=== PATIENT | male | born 1965 | race Caucasian/White ===

== ENCOUNTER 2017-04-26 04:52 | Inpatient (IN) | payer MEDICAID ==
[2017-04-26] VITALS (7 sets, daily range): BP systolic 123–136; BP diastolic 70–81
[~2017-04-26] VITALS: Ht 170.2 cm; Wt 88.0 kg
--- NOTE | 2017-04-26 04:55 | NUR ---
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 PT IS A CURRENT SMOKER 3 CIGARETTES/DAY. PT STATED THAT HE LAST USED HEROIN 10 DAYS AGO. PT WENT TO ROOM #7 AND WAS PLACED ON THE MONITOR. PT IS CALM AND COOPERATIVE. PT IS SPEAKING IN COMPLETE SENTENCES. ST ON THE MONITOR WITH HR OF 107. DR. AIKEN IS AT THE BEDSIDE AND SPEAKING TO THE PT.
--- NOTE | 2017-04-26 04:55 | NUR ---
PT APPEARS SLIGHTLY ANXIOUS AND ASKED THE NURSES TO STEP OUT OF THE ROOM SO THAT HE COULD SPEAK TO THE DR IN PRIVATE.
[2017-04-26] MEDS ORDERED: NITROGLYCERIN PACKET 1 GM PACKET TD ONE (05:00)
[2017-04-26] MEDS ORDERED: LORAZEPAM 1 MG TABLET ONE (05:18)
[2017-04-26] MEDS ORDERED: NITROGLYCERIN PACKET 1 GM PACKET ONE (05:18)
[2017-04-26] MEDS ORDERED: IV NS 0.9% 1,000 ML BAG IV ONE (05:30)
[2017-04-26] MEDS ORDERED: LORAZEPAM 1 MG TABLET PO ONE (05:30)
--- NOTE | 2017-04-26 05:30 | NUR ---
CXR DONE AT THE BEDSIDE.
[2017-04-26 05:32] LABS: CALCIUM, SERUM 8.3 mg/dL (8.5-10.1); CARBON DIOXIDE 28 mmol/L (21-32); CHLORIDE 102 mmol/L (98-107); CREATININE 0.9 mg/dL (0.6-1.3); GLUCOSE 100 mg/dL (74-106); POTASSIUM 3.6 mmol/L (3.5-5.1); SODIUM SERUM 139 mmol/L (136-145); UREA NITROGEN, BLOOD 15 mg/dL (7-18)
[2017-04-26 05:36] LABS: INR 0.94 (0.87-1.13)
[2017-04-26 05:41] LABS: TROPONIN I < 0.017 ng/mL (0.00-0.056)
--- NOTE | 2017-04-26 05:52 | NUR ---
CALLING REPORT TO TELE NURSE.
[2017-04-26 05:57] LABS: BASOPHILS # (AUTO) 0.1 /CMM (0.0-0.2); BASOPHILS % (AUTO) 0.3 % (0.0-2.0); EOSINOPHILS # (AUTO) 0.2 /CMM (0.0-0.7); EOSINOPHILS % (AUTO) 0.9 % (0.0-6.0); HEMATOCRIT 42 % (39-51); HEMOGLOBIN 13.5 g/dL (13.5-17.5); LYMPHOCYTES # (AUTO) 3.9 /CMM (0.8-4.8); LYMPHOCYTES % (AUTO) 21.1 % (20.0-44.0); MEAN CORPUSCULAR HEMOGLOBIN 27 PG (26.0-33.0); MEAN CORPUSCULAR HGB CONC 32 g/dl (31.0-36.0); MEAN CORPUSCULAR VOLUME 84 fL (80-96); MONOCYTES # (AUTO) 0.9 /CMM (0.1-1.30); MONOCYTES % (AUTO) 4.7 % (2.0-12.0); NEUTROPHILS # (AUTO) 13.6 /CMM (1.8-8.9); PLATELET COUNT (AUTO) 261 /CMM (150-450); RDW COEFFICIENT OF VARIATION 15.6 (11.5-15.0); RED BLOOD CELL COUNT(AUTO) 5.01 MIL/uL (4.5-6.0); WHITE BLOOD COUNT (AUTO) 18.6 K/uL (4.3-11.0)
[2017-04-26] MEDS ORDERED: ZOLOFT PO (06:02)
[2017-04-26] MEDS ORDERED: RESCUE INHALER (06:02)
[2017-04-26] MEDS ORDERED: LISI10TA5 PO (06:02)
[2017-04-26] MEDS ORDERED: ASPI-605 PO (06:02)
[2017-04-26] MEDS ORDERED: ALBU8.5H2 INH (06:02)
[2017-04-26] MEDS ORDERED: MORPHINE SULFATE INJ 2 MG/ML DISP.SYRIN IV PRN ×2 (06:30)
[2017-04-26] MEDS ORDERED: DOCUSATE SODIUM 100 MG CAPSULE PO PRN (06:30)
[2017-04-26] MEDS ORDERED: ONDANSETRON HCL/PF 4 MG/2 ML VIAL IVP PRN (06:30)
[2017-04-26] MEDS ORDERED: NITROGLYCERIN 0.4 MG/TAB BOTTLE SL PRN (06:30)
[2017-04-26] MEDS ORDERED: ACETAMINOPHEN 325 MG TABLET PO PRN (06:30)
[2017-04-26] MEDS ORDERED: ALBUTEROL FS 2.5 MG/3 ML VIAL.NEB NEB PRN (06:30)
--- NOTE | 2017-04-26 06:50 | NUR ---
MS/RN NOTES PT ARRIVED TO UNIT VIA GURNEY FROM ER IN STABLE CONDITION. A/OX4, ON ROOM AIR, DENIES SOB. BREATHING EVEN AND UNLABORED. NOTES PAIN TO BE 10/10 TO THE LEFT CHEST RADIATING TO THE LEFT JAW AND SHOULDER. ON TELE MONITOR, DISPLAYING SINUS RHYTHM WITH HR AT 73. IV TO LEFT WRIST RUNNING IV BOLUS OF NS. ORIENTED PT TO ROOM AND CALL LIGHT. BED IN LOW/LOCKED POSITION WITH CALL LIGHT IN REACH. SIDE RAILS UPX2. WILL MONITOR AND ENDORSE TO DAY SHIFT RN FOR PIPPA.
--- NOTE | 2017-04-26 07:15 | NUR ---
B2B SALES EXECUTIVE NOTES PATIENT IN BED ALERT AND ORIENTED, COMPLAINTS OF PAIN BUT TOLERABLE AT THIS TIME, PIV PATENT AND INTACT, IVF INFUSING AND TOLERATING WELL, INFORMED PATIENT URINE SAMPLE IS NEEDED, AND TO HOLD BREAKFAST DUE TO A CARDIOLOGY CONSULT WITH DR. GARCIA, ALL NEEDS ATTENDED, CALL LIGHT WITHIN REACH, WILL CONTINUE TO MONITOR.
[2017-04-26] MEDS: ASPIRIN EC 81 MG TABLET.DR PO SCH (08:43)
--- NOTE | 2017-04-26 08:55 | NUR ---
CONTROL VALVE TECHNICIAN NOTES SKIN ASSESSMENT COMPLETED, PATIENT GAVE PERMISSION TO TAKE PICTURES OF BILATERAL UPPER AND LOWER EXTREMITIES, BUT PATIENT REFUSED PHOTOS OF HIS HEALED SCARS ON HIS BUTTOCKS AND LOWER ABDOMINAL RASHES, PATIENT COMPLAINED OF PAIN ON SHOULDER, JAW, BACK, AND CHEST, PAIN MEDICATION ADMINISTERED, REFUSES TO TAKE BLOOD PRESSURE MEDICATIONS AT THIS TIME, HE WANTS TO REST TO SEE IF HIS BLOOD PRESSURE WILL GO DOWN, ALL NEEDS ATTENDED AND MET, CALL LIGHT WITHIN REACH, WILL CONTINUE TO MONITOR.
[2017-04-26] MEDS ORDERED: CARVEDILOL 12.5 MG TABLET PO SCH (09:00)
[2017-04-26] MEDS: LISINOPRIL (10MG) 10 MG TABLET PO SCH (09:00)
--- NOTE | 2017-04-26 10:00 | NUR ---
OVEN TENDER BAGELS NOTES PATIENT REQUESTED FOR REGULAR DIET, DR. GARCIA MADE AWARE AND SAID OK TO CHANGE DIET, BUT NO SMOKING PATIENT IS WHEEZING. PATIENT MADE AWARE AND APPRECIATIVE, BUT PATIENT WAS FOUND DOWNSTAIRS IN THE LOBBY, AFTER I INFORMED HIM HE NEEDS STAFF TO ACCOMPANY HIM TO SMOKE, PER PATIENT, "I FORGOT ABOUT WHAT YOU SAID". PATIENT ENCOURAGED TO STOP SMOKING. ALL NEEDS ATTENDED, WILL CONTINUE TO MONITOR.
[2017-04-26] MEDS: ATORVASTATIN 40 MG TABLET PO SCH (11:40)
[2017-04-26] MEDS: NICOTINE PATCH (14MG) 14 MG PATCH.TD24 TD SCH (11:41)
[2017-04-26] MEDS: PANTOPRAZOLE 40 MG TABLET.DR PO SCH (11:41)
--- NOTE | 2017-04-26 13:12 | NUR ---
REGIONAL MEDICAL DIRECTOR NOTES PATIENT REQUESTING FOR DILAUDID MEDICATION INSTEAD OF MORPHINE, PER PATIENT HE'S ITCHING WITH MORPHINE. DR. RICO MADE AWARE AND GAVE NEW ORDER FOR DILAUDID 1MG IVP Q4H PRN, ORDER NOTED AND CARRIED OUT. PATIENT AWARE.
[2017-04-26] MEDS: HYDROMORPHONE INJ 2 MG/ML DISP.SYRIN IV PRN ×3 (13:27→21:30)
[2017-04-26] MEDS: methylPREDNISolone SOD SUCC 40 MG/ML VIAL IV SCH ×2 (13:28→17:29)
[2017-04-26] MEDS ORDERED: HYDROMORPHONE 1 MG/1 ML DISP.SYRIN IV PRN (13:30)
[2017-04-26] MEDS: ALBUTEROL FS 2.5 MG/3 ML VIAL.NEB NEB SCH ×2 (13:30→23:13)
[2017-04-26] MEDS ORDERED: ALBUTEROL FS 2.5 MG/3 ML VIAL.NEB ONE (14:13)
--- NOTE | 2017-04-26 18:00 | NUR ---
OFFICER CAPTAIN NOTES STILL NEED UA SAMPLE, PATIENT MADE AWARE NUMEROUS TIMES, AND WOULD SAY, OK, SAMPLE CUP PROVIDED AT BEDSIDE.
--- NOTE | 2017-04-26 18:57 | NUR ---
SUBSTITUTE CROSSING GUARD NOTES PATIENT ALERT AND ORIENTED, SMOKER, ENCOURAGED TO CEASE SMOKING, EXPLAINED RISKS AND BENEFITS, RELAYED WBC LEVEL TO DR. RICO, WITH NO NEW ORDER AT THIS TIME, LEFT HAND X-RAY STILL PENDING, ALL NEEDS ATTENDED, CALL LIGHT WITHIN REACH, SAFETY MEASURES IN PLACED, WILL ENDORSE TO BOX BRANDER FOR PIPPA.
--- NOTE | 2017-04-26 19:30 | NUR ---
RN NOTES RECEIVED PATIENT IN BED AWAKE, AO X 3, ABLE TO MAKE NEEDS KNOWN. NO ACUTE DISTRESS NOTED. DENIES CHEST PAIN AT THIS TIME. TELE READING SR HR 89. IV SITE PATENT, INTACT; FLUSHED. SAFETY REMINDERS GIVEN. SMOKING CESSATION EDUCATION GIVEN. ON LOW BED WITH BILATERAL UPPER SIDE RAIL UP. CALL LIGHT WITHIN EASY REACH. WILL CONTINUE TO MONITOR.
[2017-04-26] MEDS: ENOXAPARIN SODIUM 40 MG/0.4 ML DISP.SYRIN SQ SCH (21:27)
[2017-04-26] MEDS: LORAZEPAM 1 MG TABLET PO PRN (22:12)
--- NOTE | 2017-04-26 22:12 | NUR ---
RN NOTES PATIENT C/O FEELING ANXOUS, RESTLESS. NONPHARMACOLOGICAL INTERVENTIONS INEFFECTIVE. ATIVAN GIVEN ORDERED. WILL CONTINUE TO MONITOR.
[2017-04-26] MEDS ORDERED: ZOLPIDEM TARTRATE 5 MG TABLET PO PRN (23:00)
[2017-04-27] VITALS (7 sets, daily range): BP systolic 101–126; BP diastolic 49–83
[2017-04-27] MEDS: HYDROMORPHONE INJ 2 MG/ML DISP.SYRIN IV PRN ×6 (01:39→21:34)
[2017-04-27] MEDS: LORAZEPAM 1 MG TABLET PO PRN ×2 (05:52→20:24)
--- NOTE | 2017-04-27 05:52 | NUR ---
RN NOTES PATIENT C/O FEELING ANXIOUS, RESTLESS. NONPHARMACOLOGICAL INTERVENTIONS INEFFECTIVE. ATIVAN GIVEN ORDERED. WILL CONTINUE TO MONITOR.
--- NOTE | 2017-04-27 06:17 | NUR ---
RN NOTES PATIENT AWAKE, RESPIRATIONS EVEN. DENIES ANY PAIN AT THIS TIME. DUE MED GIVEN WITH NO ASE NOTED. NEEDS ATTENDED. SAFETY PRECAUTIONS AND COMFORT MEASURES IN PLACE. PATIENT SMOKED CIGARETTES 4 TIMES DURING ACADEMIC AFFAIRS COORDINATOR DESPITE SMOKING CESSATION EDUCATION FROM STAFF. WILL GIVE REPORT TO DAY SHIFT FOR CONTINUITY OF CARE.
[2017-04-27] MEDS: ALBUTEROL FS 2.5 MG/3 ML VIAL.NEB NEB SCH ×3 (07:33→22:38)
--- NOTE | 2017-04-27 07:33 | NUR ---
MS/RN Patient received Patient recieved from accelerator technician. Per accelerator technician, patient tends to wonder from room to room and at times has been going outside with any staff or notifying nursing. Educated patient as to the importance of staying in his room. Staed that he understood and would try to do so. Also requesting to have pain medication increased and for frequency to be every 3 hours and not q4 as currently prescribed. Will discuses with MD, although Dr Velasquez has given orders for medication order not to be changed.
[2017-04-27] MEDS: methylPREDNISolone SOD SUCC 40 MG/ML VIAL IV SCH ×3 (07:46→17:00)
[2017-04-27] MEDS: LISINOPRIL (10MG) 10 MG TABLET PO SCH (07:47)
[2017-04-27] MEDS: PANTOPRAZOLE 40 MG TABLET.DR PO SCH (07:47)
[2017-04-27] MEDS: ASPIRIN EC 81 MG TABLET.DR PO SCH (07:47)
[2017-04-27] MEDS: ATORVASTATIN 40 MG TABLET PO SCH (07:47)
[2017-04-27] MEDS: NICOTINE PATCH (14MG) 14 MG PATCH.TD24 TD SCH (07:47)
--- NOTE | 2017-04-27 08:30 | NUR ---
MS/RN Medications Morning medications administered as ordered.
--- NOTE | 2017-04-27 08:59 | NUR ---
MS/RN New hepolck New heplock inserted on left upper arm 20g.
--- NOTE | 2017-04-27 09:30 | NUR ---
MS/RN S/B Dr Timmons Seen by Dr Timmons - orders noted and carried out.
--- NOTE | 2017-04-27 13:30 | NUR ---
MS/RN Pain medications Pain medication administered as ordered.
--- NOTE | 2017-04-27 16:00 | NUR ---
MS/RN Urine Order for urine drug screen entered in computer. Patient provided with speicemckayla reyes.
[2017-04-27 17:10] LABS: CALCIUM, SERUM 8.2 mg/dL (8.5-10.1); CREATININE 1.1 mg/dL (0.6-1.3); MAGNESIUM 2.1 mg/dL (1.8-2.4); PHOSPHORUS 2.8 mg/dL (2.5-4.9); POTASSIUM 5.4 mmol/L (3.5-5.1)
[2017-04-27 17:20] LABS: HEMATOCRIT 40 % (39-51); LYMPHOCYTES # (AUTO) 0.9 /CMM (0.8-4.8); MEAN CORPUSCULAR HEMOGLOBIN 27 PG (26.0-33.0); MEAN CORPUSCULAR HGB CONC 33 g/dl (31.0-36.0); MEAN CORPUSCULAR VOLUME 83 fL (80-96); MONOCYTES # (AUTO) 0.5 /CMM (0.1-1.30); MONOCYTES % (AUTO) 2.1 % (2.0-12.0); NEUTROPHILS # (AUTO) 21.1 /CMM (1.8-8.9); NEUTROPHILS % (AUTO) 93.9 % (43.0-81.0); PLATELET COUNT (AUTO) 311 /CMM (150-450); RDW COEFFICIENT OF VARIATION 15.4 (11.5-15.0); RED BLOOD CELL COUNT(AUTO) 4.76 MIL/uL (4.5-6.0); WHITE BLOOD COUNT (AUTO) 22.5 K/uL (4.3-11.0)
[2017-04-27 17:30] LABS: INR 0.89 (0.87-1.13); PROTHROMBIN TIME 9.4 SECS (9.5-12.7)
--- NOTE | 2017-04-27 18:11 | NUR ---
MS/RN End note No changes in plan of care, patient still demanding that pain medications be changed to every 3 hours stating that the MD said it would be changed. Explained to patient that Dr Timmons does not want any changes, remalissa unhappy. Upon administering last dose of dilaudid, requesting for medication to be "given fast, I like the high it gives me". Educated patient the right way to administered dilaudid, remians unhappy, stating that next time he would do it himself. Again education provided. Patient requesting for flushes to be left in his room so he would flush his line himself.
--- NOTE | 2017-04-27 19:30 | NUR ---
ms rn note received patient awake and alert. wandering in halls. Demanding pain medication. Instructed patient to go back to his room. Medication will be administered safely as ordered. no respiratory distress or sob noted. Will continue to monitor.
--- NOTE | 2017-04-27 21:30 | NUR ---
ms rn note patient wandering in and out of patients rooms. Not listening to instructions. Trying to leave the floor to go smoke without someone with him. Security notified. Spoke to patient. Informed patient that he can sign an AMA form. Patient refused. Went back to his room. Will continue to monitor.
[2017-04-27] MEDS: ENOXAPARIN SODIUM 40 MG/0.4 ML DISP.SYRIN SQ SCH (22:42)
--- NOTE | 2017-04-27 22:44 | NUR ---
ms rn note patient stable in room. Endorsed to JOHN English for ignacio.
--- NOTE | 2017-04-27 22:45 | NUR ---
RECEIVED PATIENT FROM JOHN LINDSAY. ALERT AND ORIENTED X3, AGITATED, COMPLAINING OF PAIN OF 8/10 TO SHOULDERS. PER PATIENT DILAUDID 2MG IVP DID NOT GO THROUGH, PATIENT CLAIMED THE PERIPHERAL LINE IS DISLODGED. ALSO RECEIVED ATIVAN PO FOR AGITATION.
--- NOTE | 2017-04-27 23:01 | NUR ---
STARTED NEW LINE TO LEFT WRIST USING #22 GAUGE. PROCEDURE TOLERATED WELL.
--- NOTE | 2017-04-27 23:09 | NUR ---
PLACED CALL TO DR. GARCIA IF DILAUDID CAN BE GIVEN AGAIN. PATIENT STILL AGITATED AND ANXIOUS, PACING IN AND OUT OF THE ROOM
--- NOTE | 2017-04-27 23:12 | NUR ---
DR. GARCIA CALLED BACK, NO ORDER TO GIVE EXTRA DILAUDID, NOTIFIED PATIENT, WILL GIVE DILAUDID 2 MG WHEN DUE.
[2017-04-28] MEDS: HYDROMORPHONE INJ 2 MG/ML DISP.SYRIN IV PRN ×3 (01:29→09:20)
[2017-04-28] MEDS: LORAZEPAM 1 MG TABLET PO PRN (03:48)
--- NOTE | 2017-04-28 05:42 | NUR ---
PATIENT GIVEN DILAUDID REQUESTED AND INSTRUCTED TO STAY IN ROOM, PATIENT WENT OUT OF ROOM, AGITATED, CALLED SECURITY. GIVEN OPTION TO SIGN AMA IF NOT ABLE TO FOLLOW REDIRECTION.
--- NOTE | 2017-04-28 05:51 | NUR ---
PATIENT STILL AGITATED, REFUSING TO GO BACK IN ROOM, RAMBLING ON, CONFRONTING EZRA MERCADO. THEN DENIES IT. PER PATIENT "HE'S GOING TO APOLOGIZE". BODY LANGUAGE SAYS OTHERWISE. SECURITY TRYING TO REDIRECT PATIENT, PATIENT NOT COMPLIANT
--- NOTE | 2017-04-28 05:58 | NUR ---
PLACED CALL TO MD MAILS SUPERVISOR FOR ADDITIONAL ORDERS SECONDARY TO AGITATION AND COMBATIVENESS, AWAITING CALL BACK
--- NOTE | 2017-04-28 06:22 | NUR ---
ESCORTED DOWNSTAIRS TO SMOKE WITH IT SALES EXECUTIVE AND 3 SECURITY
--- NOTE | 2017-04-28 06:42 | NUR ---
PATIENT IN AND OUT OF ROOM, AGITATED, DISRUPTIVE AND COMBATIVE AT TIMES, NO SOB, NO CHEST PAIN, REFUSED TO STOP SMOKING, CALLED SECURITY SEVERAL TIMES TO REDIRECT PATIENT. WANTS TO GO DOWN TO SMOKE AFTER DILAUDID ADMINISTRATION, REFUSING NURSES INSTRUCTIONS. PRESENTED AMA TO SIGN, REFUSED TO SIGN. ALL DUE MEDICATIONS GIVEN, CALL LIGHT WITHIN REACH.
--- NOTE | 2017-04-28 07:00 | NUR ---
PATIENT WENT DOWN BY HIMSELF WITH TOTAL DISREGARD TO POLICY. AT START OF SHIFT, PATIENT NOT IN THE ROOM, ENDORSED TO AM NURSE
[2017-04-28] MEDS: ALBUTEROL FS 2.5 MG/3 ML VIAL.NEB NEB SCH (07:17)
--- NOTE | 2017-04-28 07:25 | NUR ---
PATIENT IS BACK TO HIS ROOM
--- NOTE | 2017-04-28 07:30 | NUR ---
RN OPEN NOTES RECEIVED REPORT FROM CASH CLERK NURSE. PATIENT IS IN BED, ALERT AND ORIENTED TO NAME, PLACE AND TIME. NO SIGNS AND SYMPTOMS OF DISTRESS. PER PATIENT, PAIN LEVEL 9/10. PATIENT CAME BACK FROM SMOKING BREAK, I ADVISED PATIENT THAT I CAN'T GIVE HIM HIS NICOTINE PATCH SINCE HE IS STILL SMOKING. IV SITE IS INTACT AND PATENT. WILL CONTINUE TO MONITOR AND ASSESS PATIENT THROUGH OUT MY SHIFT.
[2017-04-28 08:00] VITALS: BP 117/76
[2017-04-28] MEDS: LISINOPRIL (10MG) 10 MG TABLET PO SCH (09:00)
[2017-04-28] MEDS: NICOTINE PATCH (14MG) 14 MG PATCH.TD24 TD SCH (09:00)
[2017-04-28] MEDS: PANTOPRAZOLE 40 MG TABLET.DR PO SCH (09:16)
[2017-04-28] MEDS: ASPIRIN EC 81 MG TABLET.DR PO SCH (09:16)
[2017-04-28] MEDS: ATORVASTATIN 40 MG TABLET PO SCH (09:17)
[2017-04-28] MEDS ORDERED: predniSONE 20 MG TABLET PO SCH (09:30)
--- NOTE | 2017-04-28 10:45 | NUR ---
PATIENT LEFT HIS ROOM AT 9:45AM, POSSIBLY TO SMOKE CIGARETTE HE REQUESTED HIS OSTEOPATHIC RESIDENT AND CIGARETTE FROM THE NURSING STATION. . PATIENT DIDN'T COME BACK TO THE UNIT. WENT DOWN AT 10:30AM TO LOOK FOR HIM BUT HE WAS NO WHERE TO BE FOUND. CALLED SECURITY AT 10:45AM AND THEY SAID: "PATIENT WAS ASKING FOR DIRECTION TO THE TRAIN STATION AND THEN LEFT". NURSING FINANCIAL SERVICES COUNSELOR, MONTSE, MADE AWARE. CHARGE NURSE MADE AWARE. AT 9:30AM, PATIENT REQUESTED TO REMOVE HIS IV SITE BECAUSE IT IRRITATE HIS VEIN. I REMOVED HIS IV SITE PER PATIENT REQUEST. HOWEVER; PATIENT HAD ID BAND AT TIME OF LEAVING. NO PERSONAL BELONGING LEFT BEHIND. PATIENT LEFT AGAINST MEDICAL ADVISED.
== END 2017-04-28 09:45 | disposition left against medical advice (07) | DRG 140 ==
LOC: ER 04:53 → TELE 05:57 → MED 04-27 12:28
PROVIDERS: ADMIT Internal Medicine; ATTEND Internal Medicine
DX: J44.1 Chronic obstructive pulmonary disease with (acute) exacerbation (principal); J96.20 Acute and chronic respiratory failure, unspecified whether with hypoxia or hypercapnia; I25.10 Atherosclerotic heart disease of native coronary artery without angina pectoris; F17.210 Nicotine dependence, cigarettes, uncomplicated; F32.9 Major depressive disorder, single episode, unspecified; G89.29 Other chronic pain; I10 Essential (primary) hypertension; I25.2 Old myocardial infarction; Z79.899 Other long term (current) drug therapy; F43.10 Post-traumatic stress disorder, unspecified; F41.9 Anxiety disorder, unspecified; E78.5 Hyperlipidemia, unspecified; F19.10 Other psychoactive substance abuse, uncomplicated; R07.9 Chest pain, unspecified; Z95.1 Presence of aortocoronary bypass graft
CPT/HCPCS: 36415; 71010-TC; 73130-TC; 80048-TC; 80061-TC; 82150-TC; 83690-TC; 83735-TC; 84100-TC; 84484-TC; 85025-TC; 85610-TC; 85730-TC; 87040-TC; 87081-TC; 93307-TC; A4606; J1170; J1650; J2270; J2920; J7030; Z7610

== ENCOUNTER 2018-03-24 00:47 | Inpatient (IN) | payer MEDICAID, OTHER ==
[~2018-03-24] VITALS: Ht 172.7 cm; Wt 86.2 kg
[~2018-03-24 00:47] MED LIST: ALBU8.5H8 INH; ASPI-605 PO; LISI10TA5 PO; RESCUE INHALER; ZOLOFT PO
--- NOTE | 2018-03-24 01:36 | NUR ---
PT BIBSELF C/O KAYODE LE CELLULITIS T X1 WEEK; "LAST USED HEROIN TODAY" PT AOX3 RR EVEN AND UNLABORED. NO SOB NOTED. NAD NOTED. NO NVD AT THIS TIME. PT GOWNED AND PLACED ON MONITOR WAITING FOR MD RUIZ.
--- NOTE | 2018-03-24 01:45 | NUR ---
DR. RUTHERFORD AT BEDSIDE FOR EVAL.
[2018-03-24] MEDS ORDERED: VANCOMYCIN 1 GM in IV D5W 250 ML IV ONE (02:00)
--- NOTE | 2018-03-24 02:27 | NUR ---
LAB AT BEDSIDE FOR BLOOD DRAW.
[2018-03-24 02:44] LABS: BASOPHILS % (AUTO) 0.4 % (0.0-2.0); EOSINOPHILS % (AUTO) 2.1 % (0.0-6.0); HEMATOCRIT 32 % (39-51); HEMOGLOBIN 10.1 g/dL (13.5-17.5); LYMPHOCYTES # (AUTO) 1.8 /CMM (0.8-4.8); LYMPHOCYTES % (AUTO) 17.2 % (20.0-44.0); MEAN CORPUSCULAR HGB CONC 32 g/dl (31.0-36.0); MEAN CORPUSCULAR VOLUME 82 fL (80-96); MONOCYTES # (AUTO) 0.6 /CMM (0.1-1.30); MONOCYTES % (AUTO) 5.5 % (2.0-12.0); NEUTROPHILS % (AUTO) 74.8 % (43.0-81.0); PLATELET COUNT (AUTO) 374 /CMM (150-450); RDW COEFFICIENT OF VARIATION 15.9 (11.5-15.0); RED BLOOD CELL COUNT(AUTO) 3.86 MIL/uL (4.5-6.0); WHITE BLOOD COUNT (AUTO) 10.7 K/uL (4.3-11.0)
[2018-03-24 02:54] LABS: INR 0.94 (0.87-1.13)
[2018-03-24 02:57] LABS: CREATININE 0.8 mg/dL (0.6-1.3); POTASSIUM 3.8 mmol/L (3.5-5.1)
[2018-03-24] MEDS ORDERED: VANCOMYCIN 1 GM VIAL ONE (02:59)
[2018-03-24 03:03] LABS: ALBUMIN 2.5 g/dL (3.4-5.0); BILIRUBIN,TOTAL 0.2 mg/dL (0.2-1.0); TOTAL PROTEIN, SERUM 6.5 g/dL (6.4-8.2)
--- NOTE | 2018-03-24 03:39 | NUR ---
REPORT GIVEN TO DOMINICK SEALS ON BEHALF OF JOHN REA FOR MS BED 316
--- NOTE | 2018-03-24 03:49 | NUR ---
DR. RUTHERFORD SPEAKING TO SELVIN MARIA REGARDING ADMISSION.
[2018-03-24] MEDS ORDERED: IV NS 0.9% 1,000 ML IV PRN (03:51)
[2018-03-24] MEDS ORDERED: ACETAMINOPHEN 325 MG TABLET PO PRN (04:00)
[2018-03-24] MEDS ORDERED: ALBUTEROL SULFATE 8 GM HFA.AER.AD IH PRN (04:00)
[2018-03-24] MEDS ORDERED: MAG HYDROX/AL HYDROX/SIMETH 30 ML UDC PO PRN (04:00)
[2018-03-24] MEDS ORDERED: ONDANSETRON HCL/PF 4 MG/2 ML VIAL IVP PRN (04:00)
[2018-03-24] MEDS ORDERED: MAGNESIUM HYDROXIDE 30 ML UDC PO PRN (04:00)
[2018-03-24] MEDS ORDERED: HYDROCODONE/APAP 5/325MG 1 EACH TABLET PO PRN (04:00)
[2018-03-24] MEDS ORDERED: Z GUARD REMEDY 2 OZ OINT TP PRN (04:00)
--- NOTE | 2018-03-24 04:07 | NUR ---
PT W/C TO MS BED 116.
--- NOTE | 2018-03-24 04:15 | NUR ---
RN ADMITTING NOTES Pt ARRIVED TO THE FLOOR VIA WHEELCHAIR. Pt IS AMBULATORY WITH STEADY GAIT. MED-SURG Pt. Pt IS A/OX3, VERBAL, ABLE TO MAKE NEEDS KNOWN. NO S/S OF ACUTE DISTRESS OR SOB NOTED. IV ACCESS ON LT HAND #22G, SL. SAFETY MEASURES IN PLACE. BED LOW, LOCKED, HOB ELEVATED, SIDE RAILS UP, CALL LIGHT AND BEDSIDE TABLE WITHIN REACH. WILL CONTINUE TO MONITOR Pt THROUGHOUT THE NIGHT FOR SAFETY.
--- NOTE | 2018-03-24 04:30 | NUR ---
RN NOTES Pt IS C/O PAIN ON KAYODE LOWER EXT. IS REFUSING NORCO-5 THAT MD ORDERED. Pt IS REQUESTING FOR DILAUDID, SAYING THAT SINCE HE IS A HEROIN ADDICT, DILAUDID IS THE ONLY PAIN MED THAT WILL HELP WITH HIS PAIN. Pt IS ALSO REQUESTING FOR A REGULAR DIET INSTEAD OF A CARDIAC DIET. WILL PAGE EPIC SALES TECHNICIAN HOME THEATER.
--- NOTE | 2018-03-24 04:31 | NUR ---
Pt IS REFUSING SKIN ASSESSMENT AT THIS TIME. Pt IS REFUSING TO TAKE OFF HIS CLOTHES AND BE PLACED IN A GOWN. PER Pt SAID THAT HE WILL COOPERATE ONCE HE GETS DILAUDID FOR HIS PAIN. TOLD Pt THAT THE MEMBER OF THE LEGISLATIVE ASSEMBLY AUCTIONEER TOBACCO WAS PAGED AND THAT WE ARE WAITING TO HEAR BACK.
--- NOTE | 2018-03-24 04:40 | NUR ---
RN NOTES SPOKE WITH SELVIN PASTRANA ON THE PHONE. INFORMED DIVIDING MACHINE OPERATOR HELPER OF Pt's REQUESTS TO GET DILAUDID FOR HIS PAIN AND TO BE ON A REGULAR DIET INSTEAD OF CARDIAC. SELVIN PASTRANA SAID NO TO BOTH REQUESTS.
--- NOTE | 2018-03-24 05:05 | NUR ---
NORCO 5 GIVEN ORDERED PER PT'S REQUEST FOR C/O BILATERAL LOWER EXTREMITIES PAIN, WILL CONT TO MONITOR ,
--- NOTE | 2018-03-24 05:06 | NUR ---
RN NOTES Pt IS STILL REFUSING SKIN ASSESSMENT. SAID THAT HE WANTS TO WAIT UNTIL THE PAIN FEELS BETTER, UNTIL THEN HE JUST WANTS TO REST AND BE LEFT ALONE.
--- NOTE | 2018-03-24 06:55 | NUR ---
RN CLOSING NOTES NO SIGNIFICANT CHANGES IN Pt's CONDITION. Pt REMAINS STABLE AT THIS TIME. NO S/S OF ACUTE DISTRESS OR SOB NOTED. Pt ASLEEP WITH UNLABORED RESPIRATIONS AND EQUAL CHEST RISE AND FALL. ALL NEEDS MET AND ATTENDED TO. SAFETY MEASURES IN PLACE. WILL ENDORSE TO DAYSHIFT RN FOR Pt's PIPPA.
--- NOTE | 2018-03-24 07:12 | NUR ---
MS RN OPENING NOTES RECEIVED PT FROM NIGHTSHIFT NURSE IN STABLE CONDITION. PT IS A/O X3. NO SOB OR ACUTE SIGNS OF DISTRESS NOTED, BREATHING IS EVEN AND UNLABORED. PT IS ON RA AN SATING WELL. HE COMPLAINS OF PAIN HOWEVER PRN PAIN MEDICATIONS ARE NOT DUE. IV NOTED TO BE PATENT AND INTACT. NO REDNESS OR SIGNS OF INFILTRATION NOTED. BED IN LOW LOCKED POSITION, SIDE RAILS UP X2 CALL LIGHT WITHIN REACH. WILL CONTINUE TO MONITOR
[2018-03-24] MEDS ORDERED: PANTOPRAZOLE 40 MG TABLET.DR PO SCH (07:30)
[2018-03-24 08:00] VITALS: BP 102/70
[2018-03-24] MEDS ORDERED: ALBUTEROL FS 2.5 MG/0.5 ML VIAL.NEB HHN PRN (08:29)
[2018-03-24] MEDS ORDERED: ENOXAPARIN SODIUM 40 MG/0.4 ML DISP.SYRIN SQ SCH (09:00)
[2018-03-24] MEDS ORDERED: SULF1TAB47 PO (10:40)
[2018-03-24] MEDS ORDERED: HYDROMORPHONE INJ 2 MG/ML DISP.SYRIN IV PRN (11:00)
[2018-03-24] MEDS ORDERED: HYDROMORPHONE 1 MG/1 ML DISP.SYRIN IV PRN (11:00)
[2018-03-24] MEDS ORDERED: VANCOMYCIN 1 GM in IV D5W 250 ML IV SCH (12:00)
--- NOTE | 2018-03-24 12:10 | NUR ---
Social service consult requested by SELVIN Charlton for drug use. Pt. is a 52 year old male who was admitted to [facility] for bilateral leg cellulitis. MARY ALICE met with pt. bedside. Pt. is alert and oriented x 4. Pt. was cooperative and cordial with high school social studies teacher during the assessment. Pt. states he lives in [place] and comes to the [facility] to do heroin with his friends. 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 Pt. also smokes marijuana occasionally. Pt. is a cigarette smoker. SW encouraged pt. to attend a drug rehab. program. Pt. states he is on the waitlist at [facility]. Pt. receives approximately $910 in SSI monthly. Pt's emergency contact is his brother Slava Mackay . Pt. refused long term placement. Pt did accept homeless long term resources, along with food and drug treatment program resources. Homeless patient waiver form was signed by the pt. and placed in pt's chart. MARY ALICE updated [facility]ne and pt's RN regarding the discharge plan. No other social service needs are requested at this time. SW is available, if needed.
[2018-03-24] MEDS ORDERED: FEE PK DOSING 1 MIN EA MC ONE (12:57)
--- NOTE | 2018-03-24 13:00 | NUR ---
MS NEUROLOGY PHYSICIAN NOTES PT WAS D/C FROM FACILITY IN STABLE CONDITION. ALL NEEDS WERE MET DURING SHIFT AND ORDERS CARRIED OUT ACCORDINGLY ALL DUE MEDS GIVEN. IV WAS SUCCESSFULLY REMOVED WITH TIP INTACT. EXIT CARE MATERIALS REVIEWED WITH PT HOWEVER PT REFUSED TO TAKE HIS EXITCARE MATERIALS. HE DID HOWEVER LEFT WITH HIS PRESCRIPTION. PT WAS SEEN BY HUNTING AND FISHING GUIDE PRIOR TO D/C WHO PROVIDED HIM WITH RESOURCES ALONG WITH BUS [email or web address]. HE LEFT HIS RESOURCES BUT WENT WITH THE FARE. PT SIGNED ALL D/C PAPERWORK AND COPIES WERE MADE FOR HIS CHART. HE WAS SAFELY ESCORTED TO THE MAIN LOBBY BY THE CABIN OUTFITTER AND LEFT WITH ALL BELONGINGS
== END 2018-03-24 12:58 | disposition home or self-care (01) | DRG 383 ==
LOC: ER 00:47 → MED 03:33
PROVIDERS: ADMIT Registered Nurse; ATTEND Registered Nurse
DX: L03.115 Cellulitis of right lower limb (principal); I11.0 Hypertensive heart disease with heart failure; I50.9 Heart failure, unspecified; F11.10 Opioid abuse, uncomplicated; L03.116 Cellulitis of left lower limb; I25.10 Atherosclerotic heart disease of native coronary artery without angina pectoris; Z98.890 Other specified postprocedural states; Z82.49 Family history of ischemic heart disease and other diseases of the circulatory system; Z79.82 Long term (current) use of aspirin; Z79.899 Other long term (current) drug therapy
CPT/HCPCS: 36415; 80048-TC; 80076-TC; 83605-TC; 85025-TC; 85730-TC; 87040-TC; 87081-TC; A4606; J1170; J1650; J3370; J7060; Z7610

== ENCOUNTER 2019-01-11 22:20 | Inpatient (IN) | payer MEDICAID ==
[~2019-01-11] VITALS: Ht 172.7 cm; Wt 77.8 kg
[~2019-01-11 22:20] MED LIST changes: -ASPI-605 PO; -LISI10TA5 PO; -RESCUE INHALER; +SULF1TAB47 PO; -ZOLOFT PO
--- NOTE | 2019-01-11 22:35 | NUR ---
[id number] FROM RESTAURANT C/O BILATERAL PAIN AND SWELLING X1.5 WEEK. ABLE TO AMBULATE, STEADY GAIT. -TRAUMA. PT IS AAOX4. RR EVEN AND UNLABORED. NO S/S OF ACUTE DISTRESS NOTED. PT PLACED ON MONITOR AND POX. PT SAFETY AND COMFORT MEASURES IN PLACE
[2019-01-11] MEDS ORDERED: VANCOMYCIN 1 GM in IV D5W 250 ML IV ONE (23:00)
[2019-01-11 23:16] LABS: BASOPHILS # (AUTO) 0.1 /CMM (0.0-0.2); BASOPHILS % (AUTO) 0.4 % (0.0-2.0); EOSINOPHILS % (AUTO) 1.3 % (0.0-6.0); HEMATOCRIT 31 % (39-51); HEMOGLOBIN 9.7 g/dL (13.5-17.5); LYMPHOCYTES # (AUTO) 1.6 /CMM (0.8-4.8); LYMPHOCYTES % (AUTO) 13.4 % (20.0-44.0); MEAN CORPUSCULAR HGB CONC 32 g/dl (31.0-36.0); MEAN CORPUSCULAR VOLUME 77 fL (80-96); MONOCYTES # (AUTO) 0.9 /CMM (0.1-1.30); MONOCYTES % (AUTO) 7.5 % (2.0-12.0); NEUTROPHILS # (AUTO) 9.3 /CMM (1.8-8.9); NEUTROPHILS % (AUTO) 77.4 % (43.0-81.0); PLATELET COUNT (AUTO) 404 /CMM (150-450); RED BLOOD CELL COUNT(AUTO) 3.99 MIL/uL (4.5-6.0); WHITE BLOOD COUNT (AUTO) 12.1 K/uL (4.3-11.0)
[2019-01-11 23:23] LABS: CALCIUM, SERUM 7.8 mg/dL (8.5-10.1); CARBON DIOXIDE 29 mmol/L (21-32); CHLORIDE 101 mmol/L (98-107); CREATININE 0.8 mg/dL (0.6-1.3); GLUCOSE 107 mg/dL (74-106); POTASSIUM 3.9 mmol/L (3.5-5.1); SODIUM SERUM 136 mmol/L (136-145); UREA NITROGEN, BLOOD 12 mg/dL (7-18)
[2019-01-12] MEDS ORDERED: VANCOMYCIN 1 GM VIAL ONE (00:22)
--- NOTE | 2019-01-12 00:36 | NUR ---
REPORT GIVEN TO REHABILITATION SERVICES COORDINATOR ROSE FOR PIPPA.
--- NOTE | 2019-01-12 00:37 | NUR ---
PT STATES HE DOES NOT HAVE ANY HOME MEDICATIONS
[2019-01-12 00:40] VITALS: BP 123/63
--- NOTE | 2019-01-12 00:40 | NUR ---
MS ROUGE MIXER INITIAL NOTES ADMIT PT FROM ER VIA [facility] ACCOMPANIED BY ER NURSE AND TECH. DX OF CELLULITIS ON BOTH LOWER LEGS. PT AWARE WHERE HE AT HE SCREAM RIGHT AWAY AND ASKING FOR HIS PAIN MEDICATION AND HIS ALCOHOL WITHDRAWAL MEDICATION. SPOKE TO HIM THAT THE DR PUTTING ORDERS RIGHT NOW, NO SIGNS OF ANY ACUTE DISTRESS NOTED. VANCOMYCIN IVP BAG STILL INFUSING ON HIS LEFT FOREARM. NO ADVERSE REACTION NOTED. HE ALSO STATED THAT HE'S SO HUNGRY AND DOESN'T EAT FOR 4 DAYS. OFFERED SANDWICH AND MILK THEN HE REQUESTED TO HAVE PUDDING JELO, JUICE AND WATER. ASSESSMENT DONE AND RECORDED EXCEPT THE SKIN ASSESSMENT , REFUSED TO HAVE HIS SKIN ASSESSMENT FOR NOW UNTIL HE FINISH EATING. PLACE CALL LIGHT AT REACH.
[2019-01-12 00:45] VITALS: BP 123/63
[2019-01-12] MEDS ORDERED: Z GUARD REMEDY 2 OZ OINT TP PRN (01:00)
[2019-01-12] MEDS ORDERED: DEXTROSE 50%-WATER 50 ML DISP.SYRIN IV PRN (01:00)
[2019-01-12] MEDS ORDERED: ACETAMINOPHEN 325 MG TABLET PO PRN (01:00)
[2019-01-12] MEDS ORDERED: ONDANSETRON HCL/PF 4 MG/2 ML VIAL IVP PRN (01:00)
[2019-01-12] MEDS ORDERED: INSULIN REGULAR, HUMAN 100 UNIT/ML 3 ML VIAL SQ PRN (01:00)
[2019-01-12] MEDS ORDERED: MAGNESIUM HYDROXIDE 30 ML UDC PO PRN (01:00)
[2019-01-12] MEDS: THIAMINE HCL 100 MG TABLET PO SCH ×2 (01:43→08:32)
[2019-01-12] MEDS: FOLIC ACID 1 MG TABLET PO SCH ×2 (01:44→08:32)
[2019-01-12] MEDS: HYDROCODONE/APAP 5/325MG 1 EACH TABLET PO PRN ×3 (01:44→21:58)
--- NOTE | 2019-01-12 01:45 | NUR ---
ms laverne notes routine meds given as ordered. food also served per pt requested. then skin photo also done. kept him warm and comfortable at all times. place call light at reach. will continue monitoring.
[2019-01-12] MEDS ORDERED: PIPERACILLIN /TAZOBACTAM 3.375 G in IV D5W 50 ML IV ONE (02:00)
[2019-01-12] MEDS: ZOLPIDEM TARTRATE 5 MG TABLET PO PRN (02:01)
--- NOTE | 2019-01-12 02:01 | NUR ---
ms laverne notes pt awake and alert asking for sleep medication ambien given as ordered. educate pt for possible side effect . safety precaution applied. ivf ns infusing at this time at 125ml/hr . will continue monitoring.
[2019-01-12] MEDS ORDERED: PIPERACILLIN /TAZOBACTAM 3.375 G VIAL IV ONE (02:40)
[2019-01-12] MEDS: IV NS 0.9% 1,000 ML IV PRN ×2 (02:47→11:37)
--- NOTE | 2019-01-12 04:00 | NUR ---
ms eyeglass frames inspector notes pt sleeping comfortably in bed without any acute distres noted. he seems comfortable at this time. will continue monitoring.
[2019-01-12 05:45] LABS: BASOPHILS % (AUTO) 0.4 % (0.0-2.0); HEMATOCRIT 32 % (39-51); HEMOGLOBIN 10.3 g/dL (13.5-17.5); LYMPHOCYTES # (AUTO) 1.8 /CMM (0.8-4.8); LYMPHOCYTES % (AUTO) 13.4 % (20.0-44.0); MEAN CORPUSCULAR HGB CONC 32 g/dl (31.0-36.0); MEAN CORPUSCULAR VOLUME 77 fL (80-96); MONOCYTES # (AUTO) 1.2 /CMM (0.1-1.30); MONOCYTES % (AUTO) 8.9 % (2.0-12.0); NEUTROPHILS % (AUTO) 76.3 % (43.0-81.0); PLATELET COUNT (AUTO) 429 /CMM (150-450); RED BLOOD CELL COUNT(AUTO) 4.18 MIL/uL (4.5-6.0); WHITE BLOOD COUNT (AUTO) 13.1 K/uL (4.3-11.0)
[2019-01-12 05:58] LABS: CALCIUM, SERUM 8.1 mg/dL (8.5-10.1); CREATININE 0.8 mg/dL (0.6-1.3); MAGNESIUM 2.1 mg/dL (1.8-2.4); PHOSPHORUS 3.8 mg/dL (2.5-4.9); POTASSIUM 3.6 mmol/L (3.5-5.1)
[2019-01-12 06:07] LABS: BILIRUBIN,DIRECT 0.1 mg/dL (0.0-0.2); BILIRUBIN,TOTAL 0.3 mg/dL (0.2-1.0)
[2019-01-12] MEDS: BLOOD SUGAR DIAGNOSTIC 1 EACH STRIP IN SCH ×3 (06:53→17:17)
--- NOTE | 2019-01-12 07:01 | NUR ---
MS LEATHER ROLLER CLOSING OTES PT AWAKE AND ALERT BLOOD SUGAR CHECKED DONE 91, NO INSULIN GIVEN AT THIS TIME. ALL DUE MEDS GIVEN . PT STABLE SINCE ADMISSION . SLEPT WELL AFTER MEDICATION GIVEN. MORNING CARE DONE WITH THE HELPED OF EZRA THE IVF NS STILL INFUSING ON HIS LEFT FOREARM. KEPT HIM WARM AND COMFORTABLE AT ALL TIMES. PLACE CALL LIGHT AT REACH. WILL ENDORSE TO AM NURSE FOR CONTINUITY OF CARE.BED ALARM SET FOR PT SAFETY.
--- NOTE | 2019-01-12 07:50 | NUR ---
MS RN OPENING NOTES RECEIVE PT ASLEEP AND SNORING. PT DOESN'T WANT TO BE BOTHERED AT THIS MOMENT. PT TOLERATING RA, WITH NO ACUTE RESPIRATORY DISTRESS. PT DENIES PAIN, DENIES ANY QUESTIONS OR CONCERNS AT THIS MOMENT. IVF NS AT 125ML/HR TO LFA, INTACT AND INFUSING WELL. HOB ELEVATED. KEPT CALL LIGHT AND FLUID WITHIN REACH. WILL CONTINUE TO MONITOR.
[2019-01-12 08:00] VITALS: BP 112/69
--- NOTE | 2019-01-12 08:11 | NUR ---
RN NOTES PT REFUSED TO HAVE CT SCAN. EXPLAINED RISKS AND BENEFITS. AND STILL REFUSED. WILL NOTIFY DYE COLORIST FORMULATOR CC.
--- NOTE | 2019-01-12 08:15 | NUR ---
MS RN NOTES PT NOTED PIV TO LFA PULLED OUT. PT DOESN'T WANT TO BE POKED AT THIS MOMENT. STILL WANTING TO HAVE MORE REST AND SLEEP.
--- NOTE | 2019-01-12 09:13 | NUR ---
MS RN NOTES PT REFUSED TO HAVE IV LINE TO BE IN RESTARTED AT THIS MOMENT. STATING "GIVE ME MORE HOURS TO SLEEP PLEASE". RN EXPLAINED RISKS AND BENEFITS OF IV TO BE ADMINISTERED THROUGH IV. PT STILL REFUSED TO HAVE IT IN AT THIS MOMENT.
--- NOTE | 2019-01-12 09:40 | NUR ---
SPOKE TO RN REGARDING CT. REASON FOR CT ABDOMEN PELVIS IS ABSCESS. IT IS RECOMMENDED TO BE DONE WITH IV ADMINISTRATION TO BETTER EVALUATE ANY ABSCESS. RN WILL CLARIFY ORDER WITH ORDERING NETWORK DESKTOP SUPPORT SPECIALIST. PT ALSO HAS BEEN REFUSING PROCEDURES, PER RN.
[2019-01-12] MEDS ORDERED: OXYC-133 PO (10:10)
[2019-01-12] MEDS: VANCOMYCIN 0.75 GM in IV D5W 250 ML IV SCH ×2 (10:33→15:01)
[2019-01-12] MEDS: PIPERACILLIN /TAZOBACTAM 3.375 G in IV D5W 50 ML IV SCH ×2 (11:37→18:04)
[2019-01-12] MEDS: LORAZEPAM INJ 2 MG/ML VIAL IV PRN ×2 (12:14→20:26)
--- NOTE | 2019-01-12 12:23 | NUR ---
WOUND CARE CONSULT WOUND CARE RECEIVED CONSULT FOR WOUNDS. WOUND CARE WILL DEFER CONSULT AND TREATMENT PLANS TO PLASTIC SURGICAL TEAM WHO HAVE BEEN NOTIFIED OF THIS CONSULT. PATIENT WITH JULIANA AT 18, ALL PRESSURE ULCER PREVENTION MEASURES ARE NOTED TO BE IN PLACE. WILL SEE PRN.
[2019-01-12] MEDS ORDERED: FEE PK DOSING 1 MIN EA MC ONE (14:29)
[2019-01-12 16:00] VITALS: BP 136/74
--- NOTE | 2019-01-12 19:00 | NUR ---
MS RN CLOSING NOTES PT REMAINS IN BED, INTERMITTENTLY DOZING OFF. PT TOLERATING RA, WITH NO ACUTE RESPIRATORY DISTRESS. PT DENIES PAIN AT THIS MOMENT. IVF NS AT 125ML/HR TO RFA G22, INTACT AND INFUSING WELL. HOB ELEVATED. KEPT CALL LIGHT AND FLUID WITHIN REACH. PT'S BED KEPT IN LOWEST, LOCKED POSITION WITH SR X2. ENDORSED TO LOGISTICS LEAD NURSE FOR PIPPA.
--- NOTE | 2019-01-12 19:15 | NUR ---
MS TAMI INITIAL NOTES RECEIVED REPORT FROM AM NURSE AND SEEN PT IN BED LYING DOWN NOT IN ANY ACUTE DISTRESS NOTED. BREATHING EVEN AND UNLABORED SKIN WARM AND DRY TO TOUCH. STILL WITH IVF NS AT 125ML/HR INFUSING ON HIS RIGHT FOREARM. NO REDNESS ,PATENT AND INTACT. PT ASKIN FOR HIS ATIVAN. I TOLD HIM WE HAVE TO TAKE HIS VITAL SIGNS FIRST. PT STATED "OK'. KEPT HIM WARM AND COMFORTABLE AT ALL TIMES. PLACE CALL LIGHT AT REACH. ISOLATION PRECAUTION IMPLEMENTED AND OBSERVED.
[2019-01-12 20:00] VITALS: BP 111/71
--- NOTE | 2019-01-12 20:26 | NUR ---
MS TAMI NOTES' PATIENT STARTED SCREAMING AND ASKING FOR HIS ATIVAN. 2 MG GIVEN BY ANOTHER NURSE ORDERED. REFUSED TO HAVE HIS WOUND CLEAN HE STATED "DO IT LATER , LEAVE ME ALONE "SAFETY PRECAUTION APPLIED. PLACE CALL LIGHT AT REACH.
--- NOTE | 2019-01-12 22:02 | NUR ---
ms laverne notes co/ generalized pain , norco tablet given as ordered. kept him warm and comfortable at all times. will continue monitoring.
[2019-01-13] MEDS: PIPERACILLIN /TAZOBACTAM 3.375 G in IV D5W 50 ML IV SCH ×4 (00:23→17:58)
[2019-01-13] MEDS: BLOOD SUGAR DIAGNOSTIC 1 EACH STRIP IN SCH ×5 (00:33→21:43)
--- NOTE | 2019-01-13 00:33 | NUR ---
MS MICROFILM OPERATOR NOTES PT SLEEPING COMFORTABLY IN BED WITHOUT ANY ACUTE DISTRESS NOTED. BLOOD SUGAR CHECKED 107, NO INSULIN COVERAGE AT THIS TIME. NO SIGNS OF HYPO GLYCEMIA NOTED. WILL CONTINUE MONITORING. ZOSYN INFUSING AT THIS TIME. NO ADVERSE REACTION NOTED.
[2019-01-13] MEDS: VANCOMYCIN 0.75 GM in IV D5W 250 ML IV SCH ×3 (01:09→16:06)
[2019-01-13] MEDS: HYDROCODONE/APAP 5/325MG 1 EACH TABLET PO PRN ×3 (02:04→20:35)
[2019-01-13] MEDS: IV NS 0.9% 1,000 ML IV PRN (02:07)
[2019-01-13] MEDS: LORAZEPAM INJ 2 MG/ML VIAL IV PRN ×3 (04:33→19:09)
--- NOTE | 2019-01-13 06:07 | NUR ---
ms laverne notes after i spoke to the patient regarding his wound treatment that needs to be done for his own good he agreed . sponge bath rendered and wound care treatment also done. kept him warm and comfortable at all times. place call light at reach.
[2019-01-13] MEDS: DAKINS QUARTER STRENGTH (0.125%) 480 ML BOTTLE TOP SCH ×2 (06:13→09:31)
--- NOTE | 2019-01-13 07:19 | NUR ---
ms motorboat mechanic inboard/outboard closing notes pt back to rest after morning care done. breathing even and non labored not in any acute distress noted. stable carole the night except the pain form his wound area. all due meds given and all needs met. IVF NS AT 125ML.HR still infusing on his right forearm. kept him warm and comfortable at all times. place call light at reach. endorse to am nurse Michelle for continuity of care.
--- NOTE | 2019-01-13 07:25 | NUR ---
MS RN OPENING NOTES RECEIVE PT ASLEEP AND EASILY AROUSABLE. PT TOLERATING RA, WITH NO ACUTE RESPIRATORY DISTRESS. PT DENIES PAIN, DENIES ANY QUESTIONS OR CONCERNS AT THIS MOMENT. IVF NS AT 125ML/HR TO RFA 22, INTACT AND INFUSING WELL. HOB ELEVATED. KEPT CALL LIGHT AND FLUID WITHIN REACH. PT'S BED KEPT IN LOWEST, LOCKED POSITION WITH SR X 2. WILL CONTINUE PLAN OF CARE.
[2019-01-13 08:00] VITALS: BP 142/69
[2019-01-13 08:00] LABS: CALCIUM, SERUM 8.1 mg/dL (8.5-10.1); CREATININE 0.6 mg/dL (0.6-1.3); POTASSIUM 3.6 mmol/L (3.5-5.1)
[2019-01-13] MEDS: FOLIC ACID 1 MG TABLET PO SCH (09:24)
[2019-01-13] MEDS: THIAMINE HCL 100 MG TABLET PO SCH (09:24)
--- NOTE | 2019-01-13 11:15 | NUR ---
MS RN NOTES PT AGREED FOR WOUND DEBRIDEMENT. MD STOCK AWARE AND PRESENT BEDSIDE; CONVINCED PT FOR A MOMENT. PT AGREED AND MD JAMES KIM CALLED AND MADE AWARE WELL.
--- NOTE | 2019-01-13 13:41 | NUR ---
Social service consult requested by SELVIN Verma for homelessness and drug use. Pt. is a 53 year old male who was admitted to [facility] for cellulitis of lower extremities. SW met with pt. bedside. Pt. is alert and oriented x 4. Pt. was cooperative and cordial with social services during the assessment. Pt. states he is from [place] and came to [facility] looking for employment. 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 Pt. also smokes marijuana occasionally. Pt. is a cigarette smoker. SW encouraged pt. to attend a drug rehab. program. Pt. stated, " I don't want any program, I am going to quit on my own." Pt. also stated, " If I continue doing heroin, I am going to , so I am quitting." Pt. has insight on his drug use. Pt. declined all resources. Pt. receives approximately $910 in SSI monthly. Pt's emergency contact is his brother Slava Mackay . Pt. is homeless and has being staying in the streets. Pt. is willing to go to a jail for ongoing care for his wounds if deemed appropriate. MARY ALICE spoke to lead case manager Myriam Castrejon regarding possible SNF placement. SW to meet with pt. again prior to discharge if pt. will need half-way placement. Homeless patient waiver form to be signed by pt. upon discharge. No other social service needs are requested at this time. SW is available, if needed.
--- NOTE | 2019-01-13 14:20 | NUR ---
MS RN NOTES SHORT ORDER COOK ALL JALLOH CAME FOR WOUND DEBRIDEMENT. PT REFUSED AT THIS TIME PER SHORT ORDER COOK AND REPORTED TO RN THAT PT WANTS ATIVAN FIRST. RN EXPLAINED RISK AND BENEFITS, STILL INSISTED TO REFUSE. RN ADDED, HE HAD THE ATIVAN AT 1336. PT STATING "I DON'T WANT TO BE BOTHERED THAT'S WHAT I TOLD HER(REFERRING TO SHORT ORDER COOK FLOR) AND DON'T WANT TO BE IN PAIN. I DON'T WANT THAT DEBRIDEMENT." WILL NOTIFY CN AND .
[2019-01-13 16:00] VITALS: BP 138/84
[2019-01-13] MEDS: LACTOBACILLUS RHAMNOSUS GG 1 EACH CAP.SPRINK PO SCH (16:48)
--- NOTE | 2019-01-13 18:37 | NUR ---
MS RN NOTES MD STOCK MADE AWARE OF PT'S REFUSAL AGAIN FOR WOUND DEBRIDEMENT. WILL ENDORSE TO NEXT SHIFT NURSE.
--- NOTE | 2019-01-13 18:41 | NUR ---
MS RN CLOSING NOTES PT REMAINS IN BED AND INTERMITTENTLY DOZING OFF. PT TOLERATING RA, WITH NO ACUTE RESPIRATORY DISTRESS. PT DENIES PAIN. IVF NS AT 125ML/HR TO LEFT HAND G22, INTACT AND INFUSING WELL. HOB ELEVATED. ALL NEEDS AND CARE PROVIDED. PT STILL REFUSING WITH WOUND DEBRIDEMENT, WILL ENDORSE TO INCOMING NURSE. PT KEPT CALL LIGHT AND FLUID WITHIN REACH. PT'S BED KEPT IN LOWEST, LOCKED POSITION WITH SR X 2. WILL ENDORSE TO DIRECTOR BIOSTATISTICS NURSE FOR PIPPA.
--- NOTE | 2019-01-13 18:48 | NUR ---
MS RN NOTES PT SEEN BY OTHER COWORKERS WENT TO ELEVATOR SAYING HE'S GOING TO SMOKE. AVIATION ELECTRICAL TECHNICIAN PAGED TO ACCOMPANY PT.
--- NOTE | 2019-01-13 19:30 | NUR ---
ms mechanic's assistant initial notes seen in bed lying down with IVF of NS at 125ml/hr infusing on his . no signs of any acute distress noted at this time. pt requested to have sleeping medication and norco tablet at this time. i spoke to him that i can give his norco tablet for his pain but his sleep meds by 10 pm complaint of generalized pain over his wound area. kept him warm and comfortable at all times.still on isolation precaution . place call light at reach
[2019-01-13 20:00] VITALS: BP 137/80
[2019-01-13] MEDS: ZOLPIDEM TARTRATE 5 MG TABLET PO PRN (21:53)
--- NOTE | 2019-01-13 21:55 | NUR ---
ms laverne notes pt in bed lying down blood sugar checked done 118, no insulin coverage at this time. no signs of any discomfort noted. sleep medication also administered. milk and juice served per pt requested. will continue monitoring.
--- NOTE | 2019-01-14 | NUR ---
ms laverne notes pt sleeping comfortably in bed without any acute distress noted. IVF still infusing. kept him warm and comfortable at all times. will continue monitoring.
[2019-01-14] MEDS: PIPERACILLIN /TAZOBACTAM 3.375 G in IV D5W 50 ML IV SCH ×5 (00:16→23:14)
[2019-01-14] MEDS: IV NS 0.9% 1,000 ML IV PRN (00:59)
[2019-01-14] MEDS: VANCOMYCIN 0.75 GM in IV D5W 250 ML IV SCH ×4 (01:27→23:56)
--- NOTE | 2019-01-14 02:50 | NUR ---
ms laverne notes pt sleeping comfortably in bed without any acute distress noted. kept him warm and comfortable at all times. will continue monitoring. place call light at reach.
[2019-01-14] MEDS: HYDROCODONE/APAP 5/325MG 1 EACH TABLET PO PRN ×3 (03:57→20:25)
--- NOTE | 2019-01-14 05:00 | NUR ---
CLAIMS ADMINISTRATOR NOTES PT CHECKED AND FOUND OUT THAT IVF LINE WAS OUT , HE TOLD ME HE ACCIDENTALLY PULLED OUT AND SAYING I TILD THEM DON'T PUT ON MY HANDS. JUST ON MY ARM. RE-INSERTED A NEW LINE ON HIS RIGHT FOREARM AND STARTED THE IVF AGAIN. AFTER THAT PT SCREAMING AND SAYING "GIVE MY ATIVAN RIGHT NOW, OR ELSE I WILL HAVE SEIZURE. I SPOKE TO HIM HE'S OK AND IF HE WANT HE CAN ASK NICELY THEN HE SAID "SORRY " .
[2019-01-14] MEDS: LORAZEPAM INJ 2 MG/ML VIAL IV PRN (05:51)
--- NOTE | 2019-01-14 07:00 | NUR ---
MS MOLD DESIGN ENGINEER CLOSING NOTES PT CALMED AT THIS TIME AFTER ATIVAN GIVEN LISA IVP BY ANOTHER NURSE. ALL DUE MEDS GIVEN AND ALL NEEDS MET. STABLE LISA THE NIGHT. REFUSED TO HAVE HIS BLOOD SUGAR CHECK NOW. ENDORSE TO AM NURSE FOR CONTINUITY OF CARE.
[2019-01-14] MEDS: BLOOD SUGAR DIAGNOSTIC 1 EACH STRIP IN SCH ×4 (07:30→21:53)
--- NOTE | 2019-01-14 07:30 | NUR ---
MS RN Opening Notes Received patient asleep, resting in bed. Semi-Fowlers position, supine. Alert and oriented x3, able to make needs known. No complaints of shortness of breath or pain at this time. Respirations even and unlabored on room air, no acute distress noted. Peripheral IV to the right forearm 18 gauge, intact, patent and infusing fluids as ordered. Updated patient on current plan of care and safety measures. Safety and fall precautions in place: bed in lowest and locked position, side rails up x2, bed alarm on, call light and personal possessions within reach. Room well lit, no clutter on floor. Reminded patient of safety measures, verbalized understanding. Will continue to monitor and intervene as needed.
[2019-01-14 07:38] LABS: BASOPHILS % (AUTO) 0.2 % (0.0-2.0); EOSINOPHILS % (AUTO) 0.5 % (0.0-6.0); HEMATOCRIT 33 % (39-51); HEMOGLOBIN 10.6 g/dL (13.5-17.5); LYMPHOCYTES # (AUTO) 1.8 /CMM (0.8-4.8); MEAN CORPUSCULAR HGB CONC 32 g/dl (31.0-36.0); MEAN CORPUSCULAR VOLUME 76 fL (80-96); MONOCYTES # (AUTO) 0.8 /CMM (0.1-1.30); MONOCYTES % (AUTO) 5.3 % (2.0-12.0); NEUTROPHILS # (AUTO) 12.4 /CMM (1.8-8.9); PLATELET COUNT (AUTO) 540 /CMM (150-450); RED BLOOD CELL COUNT(AUTO) 4.35 MIL/uL (4.5-6.0); WHITE BLOOD COUNT (AUTO) 15.1 K/uL (4.3-11.0)
[2019-01-14 07:43] LABS: CALCIUM, SERUM 8.3 mg/dL (8.5-10.1); CREATININE 0.7 mg/dL (0.6-1.3); POTASSIUM 3.4 mmol/L (3.5-5.1)
[2019-01-14 08:00] VITALS: BP 113/68
[2019-01-14] MEDS: THIAMINE HCL 100 MG TABLET PO SCH (09:05)
[2019-01-14] MEDS: LACTOBACILLUS RHAMNOSUS GG 1 EACH CAP.SPRINK PO SCH ×2 (09:05→16:09)
[2019-01-14] MEDS: FOLIC ACID 1 MG TABLET PO SCH (09:05)
[2019-01-14] MEDS: DAKINS QUARTER STRENGTH (0.125%) 480 ML BOTTLE TOP SCH (09:29)
[2019-01-14] MEDS ORDERED: POTASSIUM CHLORIDE 20 MEQ TAB.PRT.SR PO SCH (11:00)
--- NOTE | 2019-01-14 11:00 | NUR ---
MS RN Note Patient attempted to leave unit in elevator. Educated patient on policy regarding smoking and that we cannot let him leave the unit unaccompanied for safety reasons. Patient refused and became agitated. Repeated education and offered two choices: return to room and order a Nicotine patch or offer to sign out against medical advice. Patient returned to room safely. Will continue to monitor.
--- NOTE | 2019-01-14 13:00 | NUR ---
MS RN Note Patient declining ACHS blood glucose checks, states he is not diabetic and eats whatever he wants typically. Provided education appropriately but still refusing. Will follow-up.
--- NOTE | 2019-01-14 14:30 | NUR ---
MS RN Note Patient attempted to leave unit in elevator for a second time. Repeated education for patient on policy regarding smoking and that we cannot let him leave the unit unaccompanied for safety reasons. Patient refused and became agitated. Security called and followed patient to front lobby and into parking lot. JOHN Barnett Greens Planter notified and present. Spoke with patient. Patient returned to room safely via wheelchair. Will continue to monitor.
--- NOTE | 2019-01-14 15:32 | NUR ---
MS RN Orders Note Spoke with Dr. Aguirre over the phone regarding IV and medications for patient, due top safety status. Received new orders for medication changes for Ativan from IV to PO and Nicoderm 14 mg patch to aid in smoking cessation, repeated back and verified. Verified patient must continue on IV antibiotics for treatment of infection at this time. Noted and will carry out. Addendum: 01/14/19 at 1542 by JIMENA AQUINO RN Mentioned to Dr. Aguirre about IV access for patient and possible AWOL status. Per Dr. Aguirre, patient is no longer withdrawing and no longer needs IV Ativan, oral dose should be fine if needed. Patient to be seen by pain specialist to aid in withdrawal and will be seen for wound debridement by SELVIN Theodore.
[2019-01-14] MEDS ORDERED: LIDOCAINE 2% 20 ML MDV TP STA (15:42)
[2019-01-14] MEDS ORDERED: SILVER NITRATE APPLICATOR 1 EA BOX TP STA (15:42)
[2019-01-14 16:00] VITALS: BP 120/89
[2019-01-14] MEDS: LORAZEPAM 1 MG TABLET PO PRN ×2 (16:09→20:25)
--- NOTE | 2019-01-14 17:00 | NUR ---
MS RN Refusal Note Seen bedside with SELVIN Theodore for debridement procedure. Patient states all his wounds are healing from the inside out and there is no need for debridement. He refused debridement again. However, patient denies that he refuses procedure. Will notify primary MD.
--- NOTE | 2019-01-14 18:04 | NUR ---
MS RN Note Patient attempted to leave unit in elevator for a third time. Repeated education for patient on policy regarding smoking and that we cannot let him leave the unit unaccompanied for safety reasons. Patient refused AMA form and returned to room. Will continue to monitor.
--- NOTE | 2019-01-14 18:30 | NUR ---
MS RN Note Patient attempted to leave unit in elevator for a third time. Repeated education for patient on policy regarding smoking and that we cannot let him leave the unit unaccompanied for safety reasons. Patient refused and became agitated. Security called for back-up. Refused to sign AMA form. Patient returned to room safely via wheelchair. Will continue to monitor.
--- NOTE | 2019-01-14 18:53 | NUR ---
MS RN Closing Notes Patient currently asleep, resting in bed. Semi-Fowlers position, supine. Alert and oriented x3, able to make needs known. No complaints of shortness of breath or pain at this time. Respirations even and unlabored on room air, no acute distress noted. Peripheral IV to the left AC 22 gauge, intact, patent and saline locked. Patient keeps unhooking IV antibiotics, MD aware. Updated patient on current plan of care and safety measures. Safety and fall precautions in place: bed in lowest and locked position, side rails up x2, bed alarm on, call light and personal possessions within reach. Room well lit, no clutter on floor. Reminded patient of safety measures, verbalized understanding. See notes for previous events. Will endorse to evening or night nurse supervisor RN for continuity of care.
--- NOTE | 2019-01-14 19:05 | NUR ---
MS RN NOTES RECEIVED PT IN BED SLEEPING BUT EASILY AWOKEN VERBALLY OR BY TOUCH. PT A/O X3 AND ABLE TO MAKE NEEDS KNOWN. RESPIRATIONS EVEN AND UNLABORED WITH NO S/S OF ACUTE DISTRESS OR SOB NOTED AT THIS TIME. NO COMPLAINTS OF PAIN AT THIS TIME. PT WITH LEFT AC #22G PATENT AND INTACT SL. SAFETY MEASURES IN PLACE WITH BED IN LOW LOCKED POSITION AND SIDE RAILS UP X2. CALL LIGHT WITHIN REACH. WILL CONTINUE TO MONITOR.
[2019-01-14 20:00] VITALS: BP 130/89
[2019-01-14] MEDS: NICOTINE PATCH (14MG) 14 MG PATCH.TD24 TD SCH (20:24)
--- NOTE | 2019-01-14 21:54 | NUR ---
MS RN NOTES PT REFUSED BLOOD GLUCOSE CHECK FOR 2200. PT STATED "I DO NOT WANT TO HAVE IT CHECKED."
--- NOTE | 2019-01-14 22:37 | NUR ---
MS RN NOTES PT REFUSED TO HAVE TREATMENT ON WOUND. PT STATED "I JUST WANT TO SLEEP."
[2019-01-14] MEDS: ZOLPIDEM TARTRATE 5 MG TABLET PO PRN (23:15)
[2019-01-15] MEDS: LORAZEPAM 1 MG TABLET PO PRN ×2 (02:04→08:43)
[2019-01-15] MEDS: HYDROCODONE/APAP 5/325MG 1 EACH TABLET PO PRN ×2 (02:04→10:06)
[2019-01-15] MEDS: PIPERACILLIN /TAZOBACTAM 3.375 G in IV D5W 50 ML IV SCH (05:06)
[2019-01-15] MEDS: BLOOD SUGAR DIAGNOSTIC 1 EACH STRIP IN SCH (06:34)
--- NOTE | 2019-01-15 06:40 | NUR ---
MS RN NOTES PT IN BED SLEEPING BUT EASILY AWOKEN VERBALLY OR BY TOUCH. PT A/O X3 AND ABLE TO MAKE NEEDS KNOWN. RESPIRATIONS EVEN AND UNLABORED WITH NO S/S OF ACUTE DISTRESS OR SOB NOTED THROUGHOUT SHIFT. NO COMPLAINTS OF PAIN AT THIS TIME. PT WITH LEFT AC #22G PATENT AND INTACT RUNNING NS@75ML/HR. SAFETY MEASURES IN PLACE WITH BED IN LOW LOCKED POSITION AND SIDE RAILS UP X2. CALL LIGHT WITHIN REACH. WILL ENDORSE TO ONCOMING NURSE FOR PIPPA.
[2019-01-15 07:48] LABS: BASOPHILS # (AUTO) 0.1 /CMM (0.0-0.2); BASOPHILS % (AUTO) 0.3 % (0.0-2.0); EOSINOPHILS % (AUTO) 1.3 % (0.0-6.0); HEMATOCRIT 35 % (39-51); HEMOGLOBIN 11.4 g/dL (13.5-17.5); LYMPHOCYTES % (AUTO) 14.8 % (20.0-44.0); MEAN CORPUSCULAR HGB CONC 33 g/dl (31.0-36.0); MEAN CORPUSCULAR VOLUME 75 fL (80-96); MONOCYTES # (AUTO) 1.1 /CMM (0.1-1.30); MONOCYTES % (AUTO) 5.5 % (2.0-12.0); NEUTROPHILS # (AUTO) 15.9 /CMM (1.8-8.9); NEUTROPHILS % (AUTO) 78.1 % (43.0-81.0); PLATELET COUNT (AUTO) 584 /CMM (150-450); RED BLOOD CELL COUNT(AUTO) 4.58 MIL/uL (4.5-6.0); WHITE BLOOD COUNT (AUTO) 20.4 K/uL (4.3-11.0)
[2019-01-15 08:00] VITALS: BP 128/76
--- NOTE | 2019-01-15 08:00 | NUR ---
RN NOTES RECEIVED PATIENT IN THE BED, UNKEMPT, ANXIOUS, ASKING PAIN, AND ANXIETY MEDICATION SAME TIME. V/S TAKEN STABLE, PATIENT HAS NO ACUTE RESPIRATORY DISTRESS. IV ACCESS ON LEFT AC AREA INTACT INFUSING NS AT 125 ML/HR INTACT. PER MD HARVEY TRYING TO D/C SELF CARE BECAUSE SINCE YESTERDAY REFUSED WOUND CARE, AND TREATMENT. PATIENT PROMISES GOING TO FOLLOW DIRECTION, AND TAKE TREATMENT. SCHEDULED MEDICATION ADMINISTERED, CALL LIGHT WITHIN TO REACH, SAFETY PRECAUTION MAINTAINED ALL THE TIME.
[2019-01-15 08:01] LABS: CALCIUM, SERUM 8.3 mg/dL (8.5-10.1); CREATININE 0.6 mg/dL (0.6-1.3); POTASSIUM 3.9 mmol/L (3.5-5.1)
[2019-01-15] MEDS: VANCOMYCIN 0.75 GM in IV D5W 250 ML IV SCH (08:31)
[2019-01-15] MEDS: LACTOBACILLUS RHAMNOSUS GG 1 EACH CAP.SPRINK PO SCH (08:43)
[2019-01-15] MEDS: NICOTINE PATCH (14MG) 14 MG PATCH.TD24 TD SCH (08:43)
[2019-01-15] MEDS: FOLIC ACID 1 MG TABLET PO SCH (08:43)
[2019-01-15] MEDS: THIAMINE HCL 100 MG TABLET PO SCH (08:43)
--- NOTE | 2019-01-15 08:43 | NUR ---
RN NOTES ADMINISTERED ATIVAN 1 MG PO PRN FOR ANXIETY, PER PATIENT REQUEST, V/S TAKEN STABLE BP-128/76, P-89, CONTINUED MONITORING.
[2019-01-15] MEDS: DAKINS QUARTER STRENGTH (0.125%) 480 ML BOTTLE TOP SCH (08:59)
--- NOTE | 2019-01-15 10:06 | NUR ---
RN NOTES ADMINISTERED NARCO 5/325 MG PO PRN FOR LOWER BACK PAIN 07/14 PER PATIENT REQUEST, V/S TAKEN STABLE CONTINUED MONITORING.
--- NOTE | 2019-01-15 11:30 | NUR ---
MANUFACTURING ENGINEERING PROFESSOR NOTES PATIENT DISCHARGE AMA, REFUSED CARE, REFUSED FOLLOW DIRECTION, AND MEDICATION. DISCHARGE PATIENT TO THE [facility]. BELONGING WITH THE PATIENT , PATIENT SIGN AMA FORM. MD HARVEY AWARE OF.
== END 2019-01-15 11:50 | disposition left against medical advice (07) | DRG 383 ==
LOC: ER 22:20 → TELE 23:44 → MED 01-12 09:50
PROVIDERS: ADMIT Nurse Practitioner Acute Care; ATTEND Family Medicine
DX: L03.115 Cellulitis of right lower limb (principal); G92 Toxic encephalopathy; I11.0 Hypertensive heart disease with heart failure; I50.9 Heart failure, unspecified; E44.1 Mild protein-calorie malnutrition; E11.9 Type 2 diabetes mellitus without complications; D63.8 Anemia in other chronic diseases classified elsewhere; D72.829 Elevated white blood cell count, unspecified; E66.9 Obesity, unspecified; F17.210 Nicotine dependence, cigarettes, uncomplicated; F32.9 Major depressive disorder, single episode, unspecified; I25.10 Atherosclerotic heart disease of native coronary artery without angina pectoris; L03.116 Cellulitis of left lower limb; L02.415 Cutaneous abscess of right lower limb; L02.416 Cutaneous abscess of left lower limb; F10.239 Alcohol dependence with withdrawal, unspecified; J45.909 Unspecified asthma, uncomplicated; E78.5 Hyperlipidemia, unspecified; Z68.26 Body mass index [BMI] 26.0-26.9, adult; J44.9 Chronic obstructive pulmonary disease, unspecified; F11.23 Opioid dependence with withdrawal
CPT/HCPCS: 36415; 80048-TC; 80061-TC; 80202-TC; 82247-TC; 82248-TC; 82962-TC; 83605-TC; 83735-TC; 84100-TC; 85025-TC; 85730-TC; 87040-TC; 87081-TC; A6253; A6402; A6403; G0378; J1815; J2060; J2543; J3370; J3490; J7030; J7060

== ENCOUNTER 2020-06-03 23:33 | Inpatient (IN) | payer MEDICAID, OTHER ==
[~2020-06-03] VITALS: Ht 154.4 cm; Wt 101.6 kg
[~2020-06-03 23:33] MED LIST changes: -ALBU8.5H8 INH; +OXYC-133 PO; -SULF1TAB47 PO
--- NOTE | 2020-06-04 00:24 | NUR ---
PATIENT CAME TO ER BED 9 C/O LEFT ANKLE WOUND. PATIENT STATES THAT HE HAD THE SAME ISSUE A FEW DAYS AGO WHEN HE WAS HERE IN THIS ER. PATIENT IS AAOX4. NO SOB .BREATHING EVENLY AND UNLABORED ON ROOM AIR. CONNECTED TO THE MONITOR.
--- NOTE | 2020-06-04 00:29 | NUR ---
BLOOD DRAWN AND SENT TO THE LAB.
[2020-06-04 00:34] LABS: BASOPHILS % (AUTO) 0.4 % (0.0-2.0); EOSINOPHILS % (AUTO) 1.4 % (0.0-6.0); HEMATOCRIT 33 % (39-51); HEMOGLOBIN 10.4 g/dL (13.5-17.5); LYMPHOCYTES # (AUTO) 1.8 /CMM (0.8-4.8); LYMPHOCYTES % (AUTO) 17.2 % (20.0-44.0); MEAN CORPUSCULAR HGB CONC 31 g/dl (31.0-36.0); MEAN CORPUSCULAR VOLUME 81 fL (80-96); MONOCYTES % (AUTO) 9.3 % (2.0-12.0); NEUTROPHILS # (AUTO) 7.6 /CMM (1.8-8.9); NEUTROPHILS % (AUTO) 71.7 % (43.0-81.0); PLATELET COUNT (AUTO) 347 /CMM (150-450); WHITE BLOOD COUNT (AUTO) 10.6 K/uL (4.3-11.0)
[2020-06-04 00:56] LABS: B-TYPE NATRIURETIC PEPTIDE 1099 PG/ML (0-125); CALCIUM, SERUM 7.4 mg/dL (8.5-10.1); CARBON DIOXIDE 30 mmol/L (21-32); CHLORIDE 102 mmol/L (98-107); CREATININE 2.4 mg/dL (0.6-1.3); GLUCOSE 98 mg/dL (74-106); POTASSIUM 3.9 mmol/L (3.5-5.1); SODIUM SERUM 136 mmol/L (136-145); UREA NITROGEN, BLOOD 32 mg/dL (7-18)
[2020-06-04] MEDS ORDERED: CEFTRIAXONE 1GM BAG (ER ONLY) 50 ML IV ONE (01:06)
[2020-06-04] MEDS ORDERED: FUROSEMIDE 40 MG/4 ML VIAL ONE (01:06)
[2020-06-04] MEDS ORDERED: MORPHINE SULFATE INJ 4 MG/ML DISP.SYRIN ONE (01:06)
--- NOTE | 2020-06-04 01:11 | NUR ---
COVID SWAB COLLECTED AND SENT TO LAB.
--- NOTE | 2020-06-04 01:27 | NUR ---
PATIENT REFUSED VITALS TO BE TAKEN. PATIENT IS TALKING TO FRIEND ON PHONE.
--- NOTE | 2020-06-04 01:28 | NUR ---
PATIENT AMBULATED TO THE RESTROOM WITH A STEADY GAIT.
[2020-06-04] MEDS ORDERED: FUROSEMIDE 40 MG/4 ML VIAL IV ONE (01:30)
[2020-06-04] MEDS ORDERED: CEFTRIAXONE 1 G in IV D5W 50 ML IV ONE (01:30)
[2020-06-04] MEDS ORDERED: MORPHINE SULFATE INJ 2 MG/ML DISP.SYRIN IV ONE (01:30)
--- NOTE | 2020-06-04 01:39 | NUR ---
COVID RESULT: NEGATIVE
--- NOTE | 2020-06-04 01:42 | NUR ---
CALLED ART OBJECTS SALESPERSON FOR TELE BED
--- NOTE | 2020-06-04 02:07 | NUR ---
PATIENT STILL REFUSES VITALS TO BE TAKEN.
--- NOTE | 2020-06-04 02:09 | NUR ---
DR. CARRILLO SPEAKING WITH DR. SWANN
--- NOTE | 2020-06-04 02:24 | NUR ---
325-2 [facility] BED
[2020-06-04] MEDS ORDERED: ZOLPIDEM TARTRATE 5 MG TABLET PO PRN (02:30)
[2020-06-04] MEDS ORDERED: HYDROCODONE/APAP 5/325MG TABLET PO PRN ×2 (02:30→10:00)
[2020-06-04] MEDS ORDERED: ONDANSETRON HCL/PF 4 MG/2 ML VIAL IVP PRN (02:30)
[2020-06-04] MEDS ORDERED: Z GUARD REMEDY 2 OZ OINT TP PRN (02:30)
[2020-06-04] MEDS ORDERED: ACETAMINOPHEN 325 MG TABLET PO PRN (02:30)
[2020-06-04] MEDS ORDERED: MAG HYDROX/AL HYDROX/SIMETH 30 ML UDC PO PRN (02:30)
[2020-06-04] MEDS ORDERED: MAGNESIUM HYDROXIDE 30 ML UDC PO PRN (02:30)
--- NOTE | 2020-06-04 02:31 | NUR ---
REPORT GIVEN TO LUCINDA LOPEZ FOR PIPPA.
--- NOTE | 2020-06-04 02:34 | NUR ---
PATIENT IS AMBULATORY TO THE RESTROOM WITH A STEADY GAIT.
[2020-06-04 02:39] VITALS: BP 157/83
--- NOTE | 2020-06-04 02:39 | NUR ---
PATIENT CAME FROM ER, AWAKE, A/O X4. NO SOB NOTED. COMPLAINING OF PAIN ON THE LEFT FOOT. CALL LIGHT WITHIN REACH. BED ALARM ON. BED IN LOWEST AND LOCKED POSITION. PATIENT REFUSED THE TELE MONITOR BOX, CHARGE NURSE AWARE. SNACKS PROVIDED. URINAL AT THE BEDSIDE. PATIENT REFUSED TO BE SKIN ASSESSED.
[2020-06-04 02:40] VITALS: BP 157/83
--- NOTE | 2020-06-04 02:45 | NUR ---
PATIENT TAKEN UP TO ASSIGNED ROOM.
--- NOTE | 2020-06-04 04:12 | NUR ---
INFORMED DR SWANN RE: PATIENT REFUSED THE NORCO, WANTS THE DILAUDID INSTEAD, ACCORDING TO THE PATIENT NORCO DOES NOT GOING TO WORK. WAITING FOR THE MD RESPONSE.
--- NOTE | 2020-06-04 06:27 | NUR ---
STONECUTTER CLOSING NOTES: PATIENT IN BED, ASLEEP, AROUSABLE. NO SOB NOTED. CALL LIGHT WITHIN REACH. BED IN LOWEST AND LOCKED POSITION. BED ALARM ON. STILL REFUSED TO HAVE TELE MONITOR AT THIS TIME, CHARGE NURSE AWARE.
[2020-06-04] MEDS: PANTOPRAZOLE 40 MG TABLET.DR PO SCH (07:55)
[2020-06-04 08:00] VITALS: BP 136/78
--- NOTE | 2020-06-04 08:00 | NUR ---
SUCTION DRUM DRIER OPERATOR OPENING NOTES Received Patient resting in bed. A/O x 4. VS stable with no acute distress. Breathing even and unlabored on room air with no respiratory distress. Patient stated 10/10 pain on LLE. Administered [place] 5-325mg PO. Will continue to monitor. Patient refused telemonitor at this time. Explained risks and benefits. Patient still refused. 22g PIV on RAC intact, patent and flushing well. Safety precautions in place. Bed locked and set to lowest position with side rails x 2 up. All needs rendered at this time. Call light within reach. Will continue to monitor.
--- NOTE | 2020-06-04 08:52 | NUR ---
WOUND CARE CONSULT: VERY LIMITED ASSESSMENT DUE TO PT ONLY ALLOWING VISUAL INSPECTION OF LEFT ANKLE WOUND. REDNESS AND SWELLING NOTED WITH SOME CLEAR/SANTOS DRAINAGE. RECOMMEND DPM CONSULT. DR GALLEGOS NOTIFIED OF CONSULT REQUEST. CURRENT JULIANA SCORE IS 18.
[2020-06-04] MEDS ORDERED: CEFTRIAXONE 1 G in IV D5W 50 ML IV SCH (09:00)
[2020-06-04] MEDS ORDERED: FUROSEMIDE 40 MG/4 ML VIAL IV SCH (09:00)
[2020-06-04] MEDS ORDERED: POTA10CA43 PO (09:17)
[2020-06-04] MEDS ORDERED: FURO40TA5 PO (09:17)
[2020-06-04] MEDS ORDERED: SIMV-49 PO (09:17)
[2020-06-04 15:04] LABS: MAGNESIUM 2.5 mg/dL (1.8-2.4); PHOSPHORUS 3.8 mg/dL (2.5-4.9)
[2020-06-04 15:19] LABS: THYROID STIMULATING HORMONE 4.829 uIU/mL (0.358-3.74)
[2020-06-04 16:00] VITALS: BP 155/86
--- NOTE | 2020-06-04 16:27 | NUR ---
12:55pm This SW attempted to meet with the patient at bedside for a drug abuse consult requested by Gabby Mccullough DO. Patient presented to [facility] with a left ankle wound. Patient was alert and oriented x4. Patient did not want to meet with this SW until he was given his pain medications. SW informed the RN of patients request. This SW to attempt consult at a later time.
--- NOTE | 2020-06-04 16:27 | NUR ---
2:30pm This SW met with the patient for a drug abuse consult requested by Gabby Mccullough DO. Patient was alert and orientated x4. Patient was hesitant to speak with this SW but agreed to the assessment. Patient is a 54-year-old male. Patient presented to [facility] for a diabetic ulcer infection. Patient was able to confirm demographics on a face sheet including social security and date of . [place] [address] for the past 3 weeks. Patient reports he will return at discharge. Patient did not report an individual to be his primary contact. Patient reports that he is currently working in the [employer] industry and patient reported that his income varies. Patient also reported that he receives approximately $903 a month in Social Security. Patient denies alcohol, drug, and cigarette use. Patient asked this SW Why are you asking me these questions? This SW informed the patient that this is information necessary for her assessment and all patients are asked the same thing. Patient denies visual and auditory hallucinations. Patient denies suicidal and homicidal ideations. Patient once more asked this SW Why are you asking me these questions? This SW once more redirected the patient by stating that this is necessary information for her assessment. Patient then stated Im going to leave this place. I do a better job at controlling my pain that you guys. This SW followed up by asking the patient what he uses to control the pain, and patient responded Medications, I know how to take them and when I need them. Patient then requested this SW to leave by stating I do not want to speak with you, I want you to leave.
--- NOTE | 2020-06-04 17:54 | NUR ---
PT REFUSED BOTH ECHO AND DUPLEX LOWER ARTERIAL EXAMS UNTIL HE GETS HIS PAIN MEDICATIONS. INFORMED RN.
--- NOTE | 2020-06-04 18:04 | NUR ---
MS RN NOTES Per Serjio INSPECTING MACHINE ADJUSTER, discontinue [place]. Ordered Dilaudid 1mg IVP Q6H PRN and Ativan 1mg IVP Q6H PRN. Orders noted and carried out.
[2020-06-04] MEDS: HYDROMORPHONE 1 MG/1 ML DISP.SYRIN IV PRN (18:22)
--- NOTE | 2020-06-04 18:28 | NUR ---
MS RN NOTES Obtained consent for "serial excisional wound debridement of the left ankle wound" at this time. Explained risks and benefits. Patient verbalized understanding.
--- NOTE | 2020-06-04 18:50 | NUR ---
MS RN CLOSING NOTES Patient resting in bed. A/O x 4. VS stable with no acute distress. Breathing even and unlabored on room air with no respiratory distress. Patient stated 10/10 pain on LLE. Administered Dilaudid 1mg IVP at 1822. Will endorse to oncoming shift. 22g PIV on RAC intact, patent and flushing well. Safety precautions in place. Bed locked and set to lowest position with side rails x 2 up. All needs rendered at this time. Call light within reach. Will endorse plan of care to oncoming shift.
--- NOTE | 2020-06-04 19:17 | NUR ---
MS RN NOTES Obtained "informed consent for smoking" at this time. Provided teaching to quit smoking. Patient verbalized understanding but states that he still wants to smoke. Serjio MONTALVO notified.
[2020-06-04 20:00] VITALS: BP 150/91
--- NOTE | 2020-06-04 20:07 | NUR ---
MS/RN OPENING NOTE Patient awake in bed, A/Ox4, ambulatory. Breathing even, clear, unlabored, symmetrical, on room air. No JVD. Pedal pulses 2+. No SOB or distress noted. Afebrile. Patient denies pain. Skin warn, pink, dry, appropriate for ethnicity. Dry wound on left ankle noted, open to air. No drainage noted. 1+ pitting edema on bilateral lower extremity. Multiple scabs noted on right arm. IV site 22g RAC saline locked, no signs of redness or infiltration, patent and intact. Bed in low position, wheels locked, side rails up x2, call light within reach.
[2020-06-04 20:20] LABS: APPEARANCE,URINE CLEAR (CLEAR); BILIRUBIN,URINE NEGATIVE (NEGATIVE); BLOOD, URINE SMALL Ery/uL (NEGATIVE); COLOR,URINE YELLOW (YELLOW); KETONES,URINE NEGATIVE (NEGATIVE); LEUKOCYTE ESTERASE ,URINE NEGATIVE (NEGATIVE); NITRITE, URINE NEGATIVE (NEGATIVE); PROTEIN,URINE 100 mg/dl (NEGATIVE); UGLUCOSE 100 MG/DL mg/dL (NEGATIVE); UROBILINOGEN,URINE 0.2 EU/dL (0.2)
[2020-06-04 20:37] LABS: BACTERIA,URINE Rare /HPF (None Seen); SQUAMOUS EPITHELIAL CELL,UR 0-2 /HPF (None Seen); WBC,URINE 0-2 /HPF (0-3)
[2020-06-04] MEDS: LORAZEPAM INJ 2 MG/ML VIAL IV PRN (20:51)
[2020-06-04 21:40] VITALS: BP 150/91
[2020-06-04] MEDS ORDERED: SIMVASTATIN 20 MG TABLET PO SCH (22:00)
--- NOTE | 2020-06-05 00:22 | NUR ---
MS/RN NOTE Patient c/o pain level 10 left ankle, aching and throbbing. Administered PRN Dilaudid as ordered. VSS. Will continue to monitor.
[2020-06-05] MEDS: HYDROMORPHONE 1 MG/1 ML DISP.SYRIN IV PRN (00:24)
--- NOTE | 2020-06-05 02:03 | NUR ---
MS/RN NOTE Patient complaint of pain significant pain in left ankle, and that he is unable to wait six hours between doses. Hospitalist made aware. New med order placed for dilaudid 1mg q4h. Will continue to monitor.
[2020-06-05] MEDS: MORPHINE SULFATE INJ 2 MG/ML DISP.SYRIN IV PRN ×2 (06:16→16:11)
--- NOTE | 2020-06-05 06:23 | NUR ---
MS/RN NOTE Patient refused bed linen change at this time. Patient refused blood draw at this time, patient requested ragman to come back in 1 hour. Lab will return in 1 hour to reattempt blood draw.
--- NOTE | 2020-06-05 06:46 | NUR ---
MS/RN NOTE Patient c/o pain level 9 left ankle, aching and throbbing. Administered PRN dilaudid as ordered. VSS. Will continue to monitor.
[2020-06-05] MEDS: PANTOPRAZOLE 40 MG TABLET.DR PO SCH (06:49)
--- NOTE | 2020-06-05 07:03 | NUR ---
MS/RN CLOSING NOTE Patient awake in bed, A/Ox4, ambulatory. Breathing even, clear, unlabored, symmetrical, on room air. No SOB or distress noted. Afebrile. Skin warn, pink, dry, appropriate for ethnicity. Dry wound on left ankle noted, open to air. No drainage noted. Multiple scabs noted on right arm. IV site 22g RAC saline locked, no signs of redness or infiltration, patent and intact. Bed in low position, wheels locked, side rails up x2, call light within reach.
--- NOTE | 2020-06-05 07:30 | NUR ---
ms rn received on bed, awake,alert,oriented x4,not in any form of distress, respirations even and unlabored,no sob noted. will monitor patient's condition.
[2020-06-05] MEDS: LORAZEPAM INJ 2 MG/ML VIAL IV PRN (07:52)
[2020-06-05 08:00] VITALS: BP 163/97
--- NOTE | 2020-06-05 09:00 | NUR ---
ms hernandez breakfast served,due meds given, tolerated well.
[2020-06-05 09:47] LABS: BASOPHILS % (AUTO) 0.4 % (0.0-2.0); EOSINOPHILS % (AUTO) 2.2 % (0.0-6.0); HEMATOCRIT 31 % (39-51); LYMPHOCYTES # (AUTO) 1.7 /CMM (0.8-4.8); LYMPHOCYTES % (AUTO) 17.6 % (20.0-44.0); MEAN CORPUSCULAR HGB CONC 32 g/dl (31.0-36.0); MEAN CORPUSCULAR VOLUME 80 fL (80-96); MONOCYTES # (AUTO) 0.8 /CMM (0.1-1.30); MONOCYTES % (AUTO) 7.8 % (2.0-12.0); PLATELET COUNT (AUTO) 352 /CMM (150-450); RED BLOOD CELL COUNT(AUTO) 3.88 MIL/uL (4.5-6.0); WHITE BLOOD COUNT (AUTO) 9.8 K/uL (4.3-11.0)
[2020-06-05] MEDS ORDERED: ISOSORBIDE DINITRATE (20MG) 20 MG TABLET PO SCH (10:00)
[2020-06-05 10:08] LABS: CALCIUM, SERUM 7.6 mg/dL (8.5-10.1); CREATININE 2.3 mg/dL (0.6-1.3); MAGNESIUM 2.6 mg/dL (1.8-2.4); PHOSPHORUS 2.8 mg/dL (2.5-4.9); POTASSIUM 4.3 mmol/L (3.5-5.1); TOTAL PROTEIN, SERUM 5.7 g/dL (6.4-8.2)
[2020-06-05 10:18] LABS: THYROID STIMULATING HORMONE 3.553 uIU/mL (0.358-3.74)
[2020-06-05 10:23] LABS: ALBUMIN 0.9 g/dL (3.4-5.0)
[2020-06-05] MEDS ORDERED: CEFTRIAXONE 1 G in IV D5W 50 ML IV SCH (11:00)
--- NOTE | 2020-06-05 11:00 | NUR ---
ms rn patient is very non compliant, wants to go ama at this time, went down to smoke, still waiting for martin washburn to see, patient.
[2020-06-05] MEDS: hydrALAZINE HCL 50 MG TABLET PO SCH ×2 (11:09→13:00)
[2020-06-05 11:18] LABS: LYMPHOCYTES % (MANUAL) 17 % (16-48); MONOCYTES % (MANUAL) 7 % (0-11.0); NEUTROPHILS % (MANUAL) 76 (42-76)
[2020-06-05 16:00] VITALS: BP 114/65
[2020-06-05] MEDS ORDERED: HYDR-4077 PO (16:13)
[2020-06-05] MEDS ORDERED: LEVO500T23 PO (16:13)
[2020-06-05] MEDS ORDERED: ISOS20TA8 PO (16:13)
--- NOTE | 2020-06-05 17:00 | NUR ---
ms rn patient went ama, w/ prescription given by martin,no distress noted.
[2020-06-06 07:07] LABS: PTH, INTACT 23 pg/mL (15-65)
[2020-06-06 08:07] LABS: COMPLEMENT C3, SERUM 147 mg/dL (82-167); COMPLEMENT C4, SERUM 17 mg/dL (14-44)
[2020-06-06 14:07] LABS: *SPE A/G RATIO 0.4 (0.7-1.7); *SPE ALBUMIN 1.2 g/dL (2.9-4.4); *SPE ALPHA-1-GLOBULIN 0.5 g/dL (0.0-0.4); *SPE BETA GLOBULIN 0.9 g/dL (0.7-1.3); *SPE GLOBULIN, TOTAL 3.4 g/dL (2.2-3.9); *SPE M-SPIKE Not Observed g/dL (Not Observed)
[2020-06-06 21:10] LABS: *ANA ANTI-CENTROMERE B AB <0.2 AI (0.0-0.9); *ANA ANTI-DNA(DS) AB, QN 4 IU/mL (0-9); *ANA ANTI-JO-1 <0.2 AI (0.0-0.9); *ANA ANTICHROMATIN ANTIBODY <0.2 AI (0.0-0.9); *ANA RNP ANTIBODIES 0.5 AI (0.0-0.9); *ANA SJOGREN'S ANTI-SS-A <0.2 AI (0.0-0.9); *ANA SJOGREN'S ANTI-SS-B <0.2 AI (0.0-0.9); *ANAANTI-SCLERODERMA-70 AB <0.2 AI (0.0-0.9); *ANASMITH AB <0.2 AI (0.0-0.9)
== END 2020-06-05 17:00 | disposition left against medical advice (07) | DRG 383 ==
LOC: ER 23:34 → TELE 06-04 02:26 → MED 06-04 12:10
PROVIDERS: ADMIT Nurse Practitioner Acute Care; ATTEND Nurse Practitioner Acute Care
DX: L03.116 Cellulitis of left lower limb (principal); I87.2 Venous insufficiency (chronic) (peripheral); I87.312 Chronic venous hypertension (idiopathic) with ulcer of left lower extremity; I50.9 Heart failure, unspecified; I11.0 Hypertensive heart disease with heart failure; E78.5 Hyperlipidemia, unspecified; I25.10 Atherosclerotic heart disease of native coronary artery without angina pectoris; L03.115 Cellulitis of right lower limb; N17.0 Acute kidney failure with tubular necrosis; D50.9 Iron deficiency anemia, unspecified; L97.329 Non-pressure chronic ulcer of left ankle with unspecified severity; Z86.73 Personal history of transient ischemic attack (TIA), and cerebral infarction without residual deficits; Z82.49 Family history of ischemic heart disease and other diseases of the circulatory system; Z91.19 Patient's noncompliance with other medical treatment and regimen; F17.200 Nicotine dependence, unspecified, uncomplicated; I25.2 Old myocardial infarction; E78.00 Pure hypercholesterolemia, unspecified; Z98.890 Other specified postprocedural states; F11.20 Opioid dependence, uncomplicated; J44.9 Chronic obstructive pulmonary disease, unspecified; K76.0 Fatty (change of) liver, not elsewhere classified; F32.9 Major depressive disorder, single episode, unspecified; Z79.899 Other long term (current) drug therapy; E66.01 Morbid (severe) obesity due to excess calories; Z68.41 Body mass index [BMI] 40.0-44.9, adult; J45.909 Unspecified asthma, uncomplicated; Z76.5 Malingerer [conscious simulation]; D63.8 Anemia in other chronic diseases classified elsewhere
CPT/HCPCS: 36415; 71045-TC; 73610-TC; 76770-TC; 80048-TC; 80053-TC; 80061-TC; 81000-TC; 82550-TC; 82728-TC; 83540-TC; 83735-TC; 83880; 83970; 84100-TC; 84155; 84165; 84439-TC; 84443-TC; 84484-TC; 85025-TC; 85652-TC; 86225; 86235; 86706; 86803; 87040-TC; 87340; 93307-TC; C9803-CS; G0378; J0696; J1170; J1940; J2060; J2270; J7050; J7060

== ENCOUNTER 2020-06-11 16:43 | Emergency (ER) | payer MEDICAID, OTHER ==
[~2020-06-11] VITALS: Ht 170.2 cm; Wt 95.3 kg
[~2020-06-11 16:43] MED LIST changes: +FURO40TA5 PO; +HYDR-4077 PO; +ISOS20TA8 PO; +LEVO500T23 PO; +POTA10CA43 PO; +SIMV-49 PO
--- NOTE | 2020-06-11 16:56 | NUR ---
TIMI PAREDES AT BEDSIDE FOR EVAL.
[2020-06-11] MEDS ORDERED: ALBUTEROL FS 2.5 MG/3 ML VIAL.NEB NEB ONE (17:00)
[2020-06-11] MEDS ORDERED: IPRATROPIUM NEB FS 0.5 MG/2.5 ML AMPUL.NEB NEB ONE (17:00)
[2020-06-11] MEDS ORDERED: predniSONE 20 MG TABLET PO ONE (17:00)
[2020-06-11] MEDS ORDERED: predniSONE 20 MG TABLET ONE (17:08)
--- NOTE | 2020-06-11 17:15 | NUR ---
BIBS FROM HOME TO ER BED 6. AAOX4. NOT IN RESP DISTRESS. CAME IN ON WHEELCHAIR. CAME IN FOR COMPLAING OF BILATERAL LOWER LEG EDEMA. PER PT, HE WAS RECENTLY ADMITTED TO THE HOSPITAL BUT HAD TO GO AMA FOR SOME PERSONAL MATTER. PT IS ALSO COMPLAINING OF PAIN D/T THE SWELLING. WAS AT THE BEDSIDE FOR EVAL. ORDERS RECEIVED NOTED AND CARRIED OUT. MODEL DRESSER AT BEDSIDE FOR BLOOD DRAW AND WELL EMT FOR EKG.
--- NOTE | 2020-06-11 17:16 | NUR ---
RT AT BEDSIDE FOR BREATHING TX.
[2020-06-11] MEDS ORDERED: ALBUTEROL FS 2.5 MG/3 ML VIAL.NEB ONE (17:17)
[2020-06-11] MEDS ORDERED: IPRATROPIUM NEB FS 0.5 MG/2.5 ML AMPUL.NEB ONE (17:17)
[2020-06-11 18:02] LABS: BASOPHILS # (AUTO) 0.1 /CMM (0.0-0.2); BASOPHILS % (AUTO) 0.7 % (0.0-2.0); EOSINOPHILS % (AUTO) 1.4 % (0.0-6.0); HEMATOCRIT 30 % (39-51); HEMOGLOBIN 9.1 g/dL (13.5-17.5); LYMPHOCYTES # (AUTO) 2.1 /CMM (0.8-4.8); LYMPHOCYTES % (AUTO) 15.8 % (20.0-44.0); MEAN CORPUSCULAR HGB CONC 31 g/dl (31.0-36.0); MEAN CORPUSCULAR VOLUME 81 fL (80-96); MONOCYTES # (AUTO) 0.8 /CMM (0.1-1.30); MONOCYTES % (AUTO) 6.1 % (2.0-12.0); NEUTROPHILS # (AUTO) 9.9 /CMM (1.8-8.9); PLATELET COUNT (AUTO) 442 /CMM (150-450); RED BLOOD CELL COUNT(AUTO) 3.65 MIL/uL (4.5-6.0)
[2020-06-11 18:10] LABS: ALCOHOL, BLOOD < 3 mg/dL (0-0)
--- NOTE | 2020-06-11 18:10 | NUR ---
US AT BEDSIDE
[2020-06-11 18:11] LABS: CALCIUM, SERUM 7.5 mg/dL (8.5-10.1); CREATININE 2.1 mg/dL (0.6-1.3); POTASSIUM 3.3 mmol/L (3.5-5.1)
[2020-06-11 18:23] LABS: BILIRUBIN,TOTAL 0.1 mg/dL (0.2-1.0); TOTAL PROTEIN, SERUM 6.1 g/dL (6.4-8.2)
[2020-06-11 18:25] LABS: ALBUMIN 1.3 g/dL (3.4-5.0)
[2020-06-11] MEDS ORDERED: FUROSEMIDE 40 MG TABLET ONE (18:54)
[2020-06-11] MEDS ORDERED: TRAMADOL HCL 50 MG TABLET ONE (18:54)
[2020-06-11] MEDS ORDERED: POTASSIUM CHLORIDE 20 MEQ TAB.PRT.SR PO ONE ×2 (18:54→19:00)
[2020-06-11] MEDS ORDERED: TRAMADOL HCL 50 MG TABLET PO ONE (19:00)
[2020-06-11] MEDS ORDERED: FUROSEMIDE 40 MG TABLET PO ONE (19:00)
[2020-06-11] MEDS ORDERED: IV NS 0.9% 500 ML BAG IV ONE (19:00)
[2020-06-11 19:12] VITALS: BP 139/93
[2020-06-11 20:03] LABS: EOSINOPHILS % (MANUAL) 1 % (0-4); LYMPHOCYTES % (MANUAL) 12 % (16-48); MONOCYTES % (MANUAL) 8 % (0-11.0); NEUTROPHILS % (MANUAL) 79 (42-76)
== END 2020-06-11 19:13 | disposition home or self-care (01) ==
LOC: ER 16:52
DX: J44.9 Chronic obstructive pulmonary disease, unspecified (principal); R60.0 Localized edema; E78.5 Hyperlipidemia, unspecified; D64.9 Anemia, unspecified; I11.0 Hypertensive heart disease with heart failure; I50.9 Heart failure, unspecified; I25.10 Atherosclerotic heart disease of native coronary artery without angina pectoris; I25.2 Old myocardial infarction; Z86.19 Personal history of other infectious and parasitic diseases; Z86.73 Personal history of transient ischemic attack (TIA), and cerebral infarction without residual deficits; Z98.890 Other specified postprocedural states; Z88.6 Allergy status to analgesic agent; Z79.899 Other long term (current) drug therapy
CPT/HCPCS: 36415; 71045; 80048; 80076; 80305; 80307; 83880; 84484; 85025; 93005; 93970; 94644; 99285; J7512; G0480

== ENCOUNTER 2020-06-30 05:22 | Inpatient (IN) | payer MEDICAID, OTHER ==
[~2020-06-30] VITALS: Ht 167.6 cm; Wt 106.6 kg
[~2020-06-30 05:22] MED LIST changes: -LEVO500T23 PO
--- NOTE | 2020-06-30 05:30 | NUR ---
PT CAME TO THE ER C/O SOB X SEVERAL HOURS AND MUSCLE CRAMPS ON BLE. PT AAOX4, VSS, RESPIRATIONS EVEN AND UNLABORED ON RA W/ NAD NOTED. PT CONNECTED TO THE ICE SKATING INSTRUCTOR AND POX
--- NOTE | 2020-06-30 05:35 | NUR ---
PT ALSO ENDORSES MIDSTERNAL CHEST PAIN RADIATING TO THE LEFT ARM AND JAW .+SOB +NAUSEA.
--- NOTE | 2020-06-30 06:09 | NUR ---
BLOOD COLLECTED AND SENT TO LAB
--- NOTE | 2020-06-30 06:11 | NUR ---
XRAY AT BEDSIDE
[2020-06-30 06:12] LABS: BASOPHILS # (AUTO) 0.1 /CMM (0.0-0.2); BASOPHILS % (AUTO) 0.9 % (0.0-2.0); EOSINOPHILS % (AUTO) 3.5 % (0.0-6.0); HEMATOCRIT 31 % (39-51); HEMOGLOBIN 9.8 g/dL (13.5-17.5); LYMPHOCYTES # (AUTO) 2.1 /CMM (0.8-4.8); LYMPHOCYTES % (AUTO) 26.1 % (20.0-44.0); MEAN CORPUSCULAR HGB CONC 32 g/dl (31.0-36.0); MEAN CORPUSCULAR VOLUME 80 fL (80-96); MONOCYTES # (AUTO) 0.7 /CMM (0.1-1.30); MONOCYTES % (AUTO) 8.4 % (2.0-12.0); NEUTROPHILS # (AUTO) 4.9 /CMM (1.8-8.9); NEUTROPHILS % (AUTO) 61.1 % (43.0-81.0); PLATELET COUNT (AUTO) 410 /CMM (150-450); RED BLOOD CELL COUNT(AUTO) 3.88 MIL/uL (4.5-6.0); WHITE BLOOD COUNT (AUTO) 8.1 K/uL (4.3-11.0)
[2020-06-30 06:25] LABS: CALCIUM, SERUM 7.8 mg/dL (8.5-10.1); CARBON DIOXIDE 25 mmol/L (21-32); CHLORIDE 104 mmol/L (98-107); CREATININE 2.5 mg/dL (0.6-1.3); GLUCOSE 140 mg/dL (74-106); POTASSIUM 3.8 mmol/L (3.5-5.1); SODIUM SERUM 137 mmol/L (136-145); UREA NITROGEN, BLOOD 36 mg/dL (7-18)
--- NOTE | 2020-06-30 06:26 | NUR ---
PATIENT WANTS PAIN MEDICATIONS, SPECIFICALLY MORPHINE AND DILAUDID. MD IS NOTIFIED.
[2020-06-30] MEDS ORDERED: HYDROCODONE/APAP 5/325MG TABLET PO ONE (06:30)
[2020-06-30] MEDS ORDERED: HYDROCODONE/APAP 5/325MG TABLET ONE (06:37)
[2020-06-30 06:40] LABS: ALANINE AMINOTRANSFERASE 9 U/L (12-78); ALKALINE PHOSPHATASE 79 U/L (46-116); ASPARTATE AMINOTRANSFERASE 13 U/L (15-37); B-TYPE NATRIURETIC PEPTIDE 447 PG/ML (0-125); TOTAL PROTEIN, SERUM 5.9 g/dL (6.4-8.2)
[2020-06-30 06:45] LABS: ALBUMIN 1.1 g/dL (3.4-5.0)
--- NOTE | 2020-06-30 06:47 | NUR ---
COVID SWAB COLLECTED AND SENT TO THE LAB.
[2020-06-30] MEDS ORDERED: ASPIRIN 81 MG TAB.CHEW ONE (06:52)
[2020-06-30] MEDS ORDERED: FUROSEMIDE 20 MG/2 ML VIAL ONE (06:52)
[2020-06-30] MEDS ORDERED: ASPIRIN 81 MG TAB.CHEW PO ONE (07:00)
[2020-06-30] MEDS ORDERED: FUROSEMIDE 20 MG/2 ML VIAL IV ONE (07:00)
[2020-06-30] MEDS ORDERED: methylPREDNISolone SOD SUCC 125 MG/2ML VIAL ONE (07:27)
[2020-06-30] MEDS ORDERED: methylPREDNISolone SOD SUCC 125 MG/2ML VIAL IV ONE (07:30)
--- NOTE | 2020-06-30 07:35 | NUR ---
REPORT GIVEN TO ESHA LOPEZ FOR PIPPA.
--- NOTE | 2020-06-30 08:18 | NUR ---
NURSING SUPP CALLED FOR TELE BED.
[2020-06-30] MEDS ORDERED: ASPI-1169 PO (09:19)
[2020-06-30] MEDS ORDERED: MULT-447 PO (09:19)
--- NOTE | 2020-06-30 10:25 | NUR ---
REPORT GIVEN TO JAMES LOPEZ OF TELE UNIT
--- NOTE | 2020-06-30 11:23 | NUR ---
PT TRANSPORTED TO UNIT ON [facility] WITH EMT AND RN AT BEDSIDE W/ ACLS PROTOCOL. NAD NOTED DURING TRANSPORT. PT AMBULATED FROM GURNEY TO BED ON STEADY GAIT.
--- NOTE | 2020-06-30 11:33 | NUR ---
RN NOTES RECEIVED PT VIA SURESH, AWAKE, A/O X2, TOLERATING RA, WITH NO ACUTE RESPIRATORY DISTRESS NOTED. PT ABLE TO AMBULATE FROM HALLWAY GOING INSIDE THE ROOM. PT REPORTED OF CHRONIC LEG PAIN AND REQUESTING FOR DILAUDID. RN STATED AWAITING FOR ADMISSION ORDERS. ADMITTING/TS MADE AWARE AND WILL PLACE ORDERS. VS TAKEN AND RECORDED. PT PROVIDED HISTORY. KEPT COMFORTABLE IN BED. PT'S BED IN LOWEST, LOCKED POSITION WITH SRX3. CALL LIGHT KEPT WITHIN REACH. WILL CONTINUE PLAN OF CARE.
[2020-06-30 12:16] LABS: MAGNESIUM 2.2 mg/dL (1.8-2.4)
[2020-06-30 12:22] LABS: ALCOHOL, BLOOD < 3 mg/dL (0-0)
--- NOTE | 2020-06-30 12:30 | NUR ---
RN NOTES PT REFUSED SKIN ASSESSMENT. UNIT PROTOCOL EXPLAINED AND RISKS AND BENEFITS, STILL INSISTED TO REFUSE. PT REFUSED TO REMOVE HENOK PANTS.
[2020-06-30] MEDS ORDERED: ENOXAPARIN SODIUM 40 MG/0.4 ML DISP.SYRIN SQ SCH (14:00)
[2020-06-30] MEDS ORDERED: HYDROCODONE/APAP 10/325MG TABLET PO PRN (14:00)
[2020-06-30] MEDS ORDERED: ALBUMIN 25% 12.5 GM/50 ML BOTTLE IV ONE (14:00)
[2020-06-30] MEDS ORDERED: Z GUARD REMEDY 2 OZ OINT TP PRN (14:00)
[2020-06-30] MEDS ORDERED: ZOLPIDEM TARTRATE 5 MG TABLET PO PRN (14:00)
[2020-06-30] MEDS ORDERED: BUMETANIDE INJ 6 MG in IV NS 0.9% 36 ML IV ONE (14:00)
[2020-06-30] MEDS ORDERED: ONDANSETRON HCL/PF 4 MG/2 ML VIAL IVP PRN (14:00)
[2020-06-30] MEDS ORDERED: ACETAMINOPHEN 325 MG TABLET PO PRN (14:00)
[2020-06-30] MEDS: ENOXAPARIN SODIUM 30 MG/0.3 ML DISP.SYRIN SQ SCH (14:16)
--- NOTE | 2020-06-30 14:56 | NUR ---
RN NOTES SEEN AND EVALUATED BY HOSPITALIST/TS, PAIN MEDICINES MODIFIED. DISCONTINUED NORCO, NEW ORDERS OXYCODONE 20MG Q6HRS PRN AND ATIVAN 1MG Q6 PRN. PT ALSO INSISTING FOR DILAUDID 2MG ONE TIME ONLY, AND PROMISED WITH HOSPITALIST/TS FOR ONLY ONE DOSE.
[2020-06-30] MEDS: ALBUMIN 25% 25 GM in PREMIX 1 EA IV SCH ×2 (14:59→17:43)
[2020-06-30] MEDS ORDERED: NALOXONE HCL 0.4 MG/ML AMPUL IV PRN (15:00)
[2020-06-30] MEDS ORDERED: HYDROMORPHONE INJ 2 MG/ML DISP.SYRIN IV ONE (15:00)
[2020-06-30] MEDS ORDERED: oxyCODONE HCL SR 20MG TAB.SR.12H PO PRN (15:00)
--- NOTE | 2020-06-30 17:05 | NUR ---
TREASURY DIRECTOR/MED RECON SPOKE WITH PATIENT RE: ALLERGY AND MEDICATION. PATIENT VERIFIED ALLERGY WITH NSAID, AND TAKING ASPIRIN FOR THE HEARTH. PRIMARY RN AWARE. PHARMACY AWARE.
--- NOTE | 2020-06-30 19:24 | NUR ---
RN NOTES PT REMAINS IN BED, A/O X2-3, TOLERATING RA, WITH NO ACUTE RESPIRATORY DISTRESS NOTED. PT DENIES ANY PAIN AT THIS TIME. ON GOING BUMEX TO PINA, INFUSING WELL. KEPT COMFORTABLE IN BED. ALL NEEDS AND CARE ATTENDED. PT'S BED IN LOWEST, LOCKED POSITION WITH SRX3. CALL LIGHT KEPT WITHIN REACH. ENDORSED TO INCOMING NIGHT NURSE FOR PIPPA.
--- NOTE | 2020-06-30 19:40 | NUR ---
REMOTE CONTROL ASSEMBLER OPENING NOTES PATIENT AWAKE IN BED. A/OX2-3. ON RA; NO S/S OF ACUTE RESPIRATORY DISTRESS; BREATHING IS EVEN AND UNLABORED. TELE MONITOR READING NSR, HEART RATE 88. IV PRESENT ON RIGHT UPPER ARM, SIZE 22, INTACT & PATENT WITH BUMEX 6MG IV RUNNING AT 10 ML/HR. CONTACT/DROPLET PRECAUTIONS IN PLACE FOR R/O COVID; RESULTS PENDING. SAFETY MEASURES IN PLACE AND PATIENT'S NEEDS MET. BED LOCKED, ALARM ON, SIDE RAILSX3, CALL LIGHT WITHIN REACH. WILL CONTINUE TO MONITOR.
[2020-06-30 20:00] VITALS: BP 145/92
[2020-06-30] MEDS: oxyCODONE IR immediate release 5 MG PO PRN (20:42)
--- NOTE | 2020-06-30 20:42 | NUR ---
CANDLE WICKER NOTES PATIENT C/O GENERALIZE PAIN RATED 10/10. ADMINISTERED PRN OXYCODONE 20MG PO. VITAL SIGNS - BP: 145/92, HR: 97, SPO2 98 ON RA. CALL LIGHT WITHIN REACH. WILL CONTINUE TO MONITOR.
[2020-06-30] MEDS ORDERED: SIMVASTATIN 40 MG TABLET PO SCH (22:00)
[2020-06-30] MEDS ORDERED: SIMVASTATIN 20 MG TABLET PO SCH (22:00)
[2020-06-30] MEDS ORDERED: SIMVASTATIN 20 MG TABLET ONE (22:07)
--- NOTE | 2020-06-30 22:31 | NUR ---
RESTAURANT ASSOCIATE NOTES SCHEDULED SIMVASTATIN 40 MG TAB NOT STOCKED IN PYXIS. CHARGE NURSE PULLED SIMVASTATIN 20 MG 2 TABS FROM PYXIS. ADMINISTERED PER ORDERS.
[2020-06-30] MEDS: LORAZEPAM 1 MG TABLET PO PRN (23:15)
--- NOTE | 2020-06-30 23:15 | NUR ---
REFRACTORY PRODUCTS SUPERVISOR NOTES PATIENT C/O ANXIETY. ADMINISTERED PRN ATIVAN 1MG PO PER PATIENT'S REQUEST. SAFETY MEASURES IN PLACE AND PATIENT'S NEEDS MET. WILL CONTINUE TO MONITOR.
[2020-07-01] VITALS: BP 142/84
[2020-07-01] MEDS: oxyCODONE IR immediate release 5 MG PO PRN ×3 (03:27→17:49)
--- NOTE | 2020-07-01 03:27 | NUR ---
RACQUET MAKER NOTE PATIENT C/O OF LEG PAIN RATED 10/10. ADMINISTERED PRN OXYCODONE 20MG PO PER PATIENT'S REQUEST. VITAL SIGNS- BP: 150/90, HR: 92, SPO2: 100 ON 2L NC. SAFETY MEASURES IN PLACE AND PATIENT'S NEEDS MET. WILL CONTINUE TO MONITOR.
[2020-07-01 04:00] VITALS: BP 150/90
[2020-07-01] MEDS: LORAZEPAM 1 MG TABLET PO PRN ×3 (06:12→20:13)
--- NOTE | 2020-07-01 06:12 | NUR ---
STRAW BOSS NOTES PATIENT C/O ANXIETY AND RESTLESSNESS. ADMINISTERED PRN ATIVAN 1MG PO PER PATIENT'S REQUEST. SAFETY MEASURES IN PLACE AND PATIENT'S NEEDS MET. WILL CONTINUE TO MONITOR.
--- NOTE | 2020-07-01 06:40 | NUR ---
IMPORT/EXPORT ANALYST CLOSING NOTES PATIENT SLEEPING, EASY TO AWAKEN. A/OX2-3. ON RA; NO S/S OF ACUTE RESPIRATORY DISTRESS; BREATHING IS EVEN AND UNLABORED. TELE MONITOR READING NSR, HEART RATE 80. IV PRESENT ON RIGHT UPPER ARM, SIZE 22, INTACT & PATENT, HEP LOCKED. SAFETY MEASURES IN PLACE AND PATIENT'S NEEDS MET. BED LOCKED, ALARM ON, SIDE RAILS X2, CALL LIGHT WITHIN REACH. WILL ENDORSE TO DAY SHIFT RN PLAN OF CARE.
--- NOTE | 2020-07-01 08:00 | NUR ---
RN NOTES RECEIVED PATIENT IN THE BED A/O X3, ISOLATION OF R/O COVID. PATIENT TELE HR-99, NO ACUTE RESPIRATORY DISTRESS, UNKEMPT, ROOM AIR,REFUSED VITALS AT THIS TIME BECAUSE OF ASKING EXTRA FOOD. PATIENT USING URINAL, CELLULITIS BLE, PATIENT OBESE. IV ACCESS ON RIGHT UA INTACT HL. CALL LIGHT WITHIN TO REACH, WILL CONTINUED MONITORING.
[2020-07-01] MEDS: FUROSEMIDE 40 MG TABLET PO SCH (09:16)
[2020-07-01] MEDS: POTASSIUM CHLORIDE 10 MEQ TABLET.SA PO SCH (09:16)
[2020-07-01] MEDS: ASPIRIN 81 MG TAB.CHEW PO SCH (09:16)
[2020-07-01] MEDS: MULTIVITAMINS,THERAGRAN 1 UDTAB TABLET PO SCH (09:16)
[2020-07-01] MEDS: ENOXAPARIN SODIUM 30 MG/0.3 ML DISP.SYRIN SQ SCH (09:17)
[2020-07-01 09:30] VITALS: BP 156/102
--- NOTE | 2020-07-01 09:30 | NUR ---
RN NOTES ADMINISTERED OXY IR 20 MG PO PRN FOR GENERALIZED PAIN 07/14 PER PATIENT REQUEST, V/S TAKEN BP 156/102, P-100, R-20. PATIENT HEROIN WITHDRAWAL, SELF CARE, ALSO ADMINISTERED SCHEDULED MEDICATION. CONTINUED MONITORING.
[2020-07-01 12:02] LABS: BASOPHILS % (AUTO) 0.1 % (0.0-2.0); EOSINOPHILS % (AUTO) 0.3 % (0.0-6.0); HEMATOCRIT 35 % (39-51); HEMOGLOBIN 11.2 g/dL (13.5-17.5); LYMPHOCYTES # (AUTO) 1.8 /CMM (0.8-4.8); LYMPHOCYTES % (AUTO) 11.5 % (20.0-44.0); MEAN CORPUSCULAR HGB CONC 32 g/dl (31.0-36.0); MEAN CORPUSCULAR VOLUME 79 fL (80-96); MONOCYTES # (AUTO) 0.7 /CMM (0.1-1.30); MONOCYTES % (AUTO) 4.7 % (2.0-12.0); NEUTROPHILS # (AUTO) 12.9 /CMM (1.8-8.9); NEUTROPHILS % (AUTO) 83.4 % (43.0-81.0); PLATELET COUNT (AUTO) 507 /CMM (150-450); RED BLOOD CELL COUNT(AUTO) 4.45 MIL/uL (4.5-6.0); WHITE BLOOD COUNT (AUTO) 15.4 K/uL (4.3-11.0)
[2020-07-01 12:22] LABS: APPEARANCE,URINE CLEAR (CLEAR); BILIRUBIN,URINE NEGATIVE (NEGATIVE); BLOOD, URINE TRACE-INTA Ery/uL (NEGATIVE); KETONES,URINE NEGATIVE (NEGATIVE); LEUKOCYTE ESTERASE ,URINE NEGATIVE (NEGATIVE); NITRITE, URINE NEGATIVE (NEGATIVE); PROTEIN,URINE >=300 mg/dl (NEGATIVE); UGLUCOSE 250 MG/DL mg/dL (NEGATIVE); UROBILINOGEN,URINE 0.2 EU/dL (0.2)
[2020-07-01 12:31] LABS: COLOR,URINE STRAW (YELLOW)
[2020-07-01 12:34] LABS: CALCIUM, SERUM 8.7 mg/dL (8.5-10.1); CREATININE 2.3 mg/dL (0.6-1.3); MAGNESIUM 2.4 mg/dL (1.8-2.4); PHOSPHORUS 3.9 mg/dL (2.5-4.9); POTASSIUM 3.6 mmol/L (3.5-5.1); TOTAL PROTEIN, SERUM 6.4 g/dL (6.4-8.2)
[2020-07-01 12:36] LABS: ALBUMIN 1.2 g/dL (3.4-5.0)
[2020-07-01 12:50] LABS: THYROID STIMULATING HORMONE 5.895 uIU/mL (0.358-3.74)
[2020-07-01 12:59] LABS: BACTERIA,URINE Rare /HPF (None Seen); SQUAMOUS EPITHELIAL CELL,UR Rare /HPF (None Seen); WBC,URINE 0-2 /HPF (0-3)
--- NOTE | 2020-07-01 13:58 | NUR ---
rn notes administered Ativan 1mg po prn for anxiety per patient request, v/s taken bp- 134/71, p-100, continued monitoring.
[2020-07-01 14:00] VITALS: BP 141/75
--- NOTE | 2020-07-01 17:49 | NUR ---
rn notes administered oxi ir 20 mg po prn for generalized pain. v/s taken bp 120/74, p-93. continued monitoring.
[2020-07-01] MEDS ORDERED: BUMETANIDE INJ 6 MG in IV NS 0.9% 36 ML IV ONE (18:00)
--- NOTE | 2020-07-01 18:30 | NUR ---
RN NOTES PATIENT STABLE, MEDICATION WERE ADMINISTERED FOR PAIN EFFECTIVE, PATIENT HEROIN WITHDRAW, INFUSING BUMEX 10 ML/HR ON RIGHT UA INTACT, CALL LIGHT WITHIN TO REACH. ENDORSED ONCOMING NURSE FOLLOW PLAN OF CARE.
--- NOTE | 2020-07-01 20:00 | NUR ---
telegraph office manager notes pt refused photos at this time. will continue to monitor.
[2020-07-02] MEDS: oxyCODONE IR immediate release 5 MG PO PRN ×3 (00:41→14:36)
--- NOTE | 2020-07-02 04:00 | NUR ---
telecommunications analyst notes pt refused 4am vitals. pt stated i just want to sleep do it later. will continue to monitor.
[2020-07-02] MEDS: LORAZEPAM 1 MG TABLET PO PRN (05:37)
--- NOTE | 2020-07-02 05:42 | NUR ---
telemetry tech notes pt refused morning labs. pt stated i just want to sleep. will continue to monitor.
--- NOTE | 2020-07-02 07:43 | NUR ---
FAST FOOD TEAM MEMBER OPENING NOTES RECEIVED PATIENT IN BED, ASLEEP. PATIENT ON ROOM AIR; BREATHING IS EVEN AND UNLABORED; NO SOB NOTED. NO S/S OF PAIN SUCH FACIAL GRIMACING, MOANING OR GUARDING. PINA Randall # 22 IV ACCESS PRESENT AND INTACT. SAFETY PRECAUTIONS IN PLACE; BED IN LOW POSITION AND LOCKED, RAILS UP X2, CALL LIGHT WITHIN REACH. WILL CONTINUE TO MONITOR PATIENT.
[2020-07-02 08:00] VITALS: BP 157/91
[2020-07-02] MEDS: MULTIVITAMINS,THERAGRAN 1 UDTAB TABLET PO SCH (08:29)
[2020-07-02] MEDS: FUROSEMIDE 40 MG TABLET PO SCH (08:29)
[2020-07-02] MEDS: ASPIRIN 81 MG TAB.CHEW PO SCH (08:29)
[2020-07-02] MEDS: POTASSIUM CHLORIDE 10 MEQ TABLET.SA PO SCH (08:29)
[2020-07-02] MEDS: ENOXAPARIN SODIUM 30 MG/0.3 ML DISP.SYRIN SQ SCH (08:30)
--- NOTE | 2020-07-02 08:42 | NUR ---
PROFESSOR OF HISTORY NOTES PATIENT COMPLAINING OF GENERALIZED PAIN 10/10 AND REQUESTING PAIN MEDICATION. PRN PAIN MEDICATION ADMINISTERED PER MD ORDER.
[2020-07-02] MEDS ORDERED: CEPH-570 PO (11:14)
[2020-07-02] MEDS ORDERED: BUME1TAB34 GT (11:14)
--- NOTE | 2020-07-02 13:42 | NUR ---
MS RN NOTES PATIENT'S PHOTOS OF LOWER EXTREMITIES DONE AND FILED. DRESSING DONE PER MD ORDER
[2020-07-02 16:47] LABS: BASOPHILS # (AUTO) 0.2 /CMM (0.0-0.2); BASOPHILS % (AUTO) 1.3 % (0.0-2.0); EOSINOPHILS % (AUTO) 1.8 % (0.0-6.0); HEMATOCRIT 38 % (39-51); HEMOGLOBIN 12.5 g/dL (13.5-17.5); LYMPHOCYTES % (AUTO) 22.2 % (20.0-44.0); MEAN CORPUSCULAR HGB CONC 33 g/dl (31.0-36.0); MEAN CORPUSCULAR VOLUME 79 fL (80-96); MONOCYTES # (AUTO) 0.8 /CMM (0.1-1.30); MONOCYTES % (AUTO) 5.7 % (2.0-12.0); NEUTROPHILS # (AUTO) 9.2 /CMM (1.8-8.9); PLATELET COUNT (AUTO) 641 /CMM (150-450); RED BLOOD CELL COUNT(AUTO) 4.84 MIL/uL (4.5-6.0); WHITE BLOOD COUNT (AUTO) 13.4 K/uL (4.3-11.0)
[2020-07-02 17:02] LABS: CREATININE 2.8 mg/dL (0.6-1.3); POTASSIUM 3.8 mmol/L (3.5-5.1)
--- NOTE | 2020-07-02 17:05 | NUR ---
MS INSPECTOR FLOOR SUB ASSEMBLY NOTES PATIENT DISCHARGED HOME. WHILE PRINTING PAPERWORK PATIENT WAS INPATIENT AND DECIDED TO LEAVE DOWNSTAIRS AND WAIT THERE. 2 RNs WENT DOWN WITH HIM TO MAKE SURE HE WAITS FOR HIS PAPERS. SECURITY WAS AWARE OF THE SITUATION AND WAS WATCHING HIM THERE. PATIENT A/O X3, IRRITABLE. PAPERWORK SIGNED BY PATIENT AND FILED. ALL DISCHARGE PAPERS EXPLAINED; PRESCRIBED MEDICATIONS EXPLAINED WELL. PATIENT VERBALIZED UNDERSTANDING AND DECIDED TO LEAVE. BELONGINGS ACCOUNTED FOR AND FORM SIGNED WELL. IV WAS REMOVED BEFORE PATIENT DECIDED TO LEAVE FAST. DOWNSTAIRS WHEN DOCUMENTATION FOLDER WAS PRESENTED HE SAID HE DOESN'T HAVE ANY MEANS GETTING HOME. RN SPOKE TO NURSING DATA REPORT ANALYST AND NS PROVIDED A BUS PASS. PATIENT WAS GIVEN HIS BUS PASS; PATIENT LEFT.
[2020-07-02 17:19] LABS: BILIRUBIN,TOTAL 0.1 mg/dL (0.2-1.0); CALCIUM, SERUM 8.3 mg/dL (8.5-10.1); CREATININE 2.7 mg/dL (0.6-1.3); MAGNESIUM 2.3 mg/dL (1.8-2.4); PHOSPHORUS 5.3 mg/dL (2.5-4.9); POTASSIUM 3.9 mmol/L (3.5-5.1); TOTAL PROTEIN, SERUM 6.8 g/dL (6.4-8.2)
[2020-07-02 17:24] LABS: ALBUMIN 1.4 g/dL (3.4-5.0)
== END 2020-07-02 17:35 | disposition home or self-care (01) | DRG 383 ==
LOC: ER 05:25 → TELE2 10:30
PROVIDERS: ADMIT Nurse Practitioner Acute Care; ATTEND Nurse Practitioner Acute Care
DX: L03.115 Cellulitis of right lower limb (principal); N17.0 Acute kidney failure with tubular necrosis; L03.116 Cellulitis of left lower limb; I50.33 Acute on chronic diastolic (congestive) heart failure; Z59.0 Homelessness; K74.60 Unspecified cirrhosis of liver; R18.8 Other ascites; I13.0 Hypertensive heart and chronic kidney disease with heart failure and stage 1 through stage 4 chronic kidney disease, or unspecified chronic kidney disease; Z86.73 Personal history of transient ischemic attack (TIA), and cerebral infarction without residual deficits; E78.5 Hyperlipidemia, unspecified; L97.929 Non-pressure chronic ulcer of unspecified part of left lower leg with unspecified severity; L97.919 Non-pressure chronic ulcer of unspecified part of right lower leg with unspecified severity; N18.9 Chronic kidney disease, unspecified; I25.2 Old myocardial infarction; J44.9 Chronic obstructive pulmonary disease, unspecified; E78.00 Pure hypercholesterolemia, unspecified; Z98.890 Other specified postprocedural states; K76.0 Fatty (change of) liver, not elsewhere classified; Z79.899 Other long term (current) drug therapy; I25.10 Atherosclerotic heart disease of native coronary artery without angina pectoris; Z88.8 Allergy status to other drugs, medicaments and biological substances; E66.01 Morbid (severe) obesity due to excess calories; F11.23 Opioid dependence with withdrawal; E46 Unspecified protein-calorie malnutrition; E11.22 Type 2 diabetes mellitus with diabetic chronic kidney disease; B19.20 Unspecified viral hepatitis C without hepatic coma; F17.200 Nicotine dependence, unspecified, uncomplicated; D63.8 Anemia in other chronic diseases classified elsewhere; K21.9 Gastro-esophageal reflux disease without esophagitis; M89.9 Disorder of bone, unspecified; Z79.82 Long term (current) use of aspirin; F19.11 Other psychoactive substance abuse, in remission; I83.218 Varicose veins of right lower extremity with both ulcer of other part of lower extremity and inflammation; I83.228 Varicose veins of left lower extremity with both ulcer of other part of lower extremity and inflammation
CPT/HCPCS: 36415; 71045-TC; 80048-TC; 80053-TC; 80061-TC; 80076-TC; 80305; 81000-TC; 82565-TC; 83540-TC; 83735-TC; 83880; 84100-TC; 84132-TC; 84443-TC; 84484-TC; 85025-TC; 85378-TC; 85730-TC; 87081-TC; A4216; A6253; G0378; J1170; J1650; J1940; J2930; J3490; P9047; U0003-CS

== ENCOUNTER 2021-03-07 09:09 | Emergency (ER) | payer MEDICAID ==
[~2021-03-07] VITALS: Ht 167.6 cm; Wt 114.3 kg
[~2021-03-07 09:09] MED LIST changes: +ASPI-1169 PO; +BUME1TAB34 GT; +CEPH-570 PO; -FURO40TA5 PO; -HYDR-4077 PO; -ISOS20TA8 PO; +MULT-447 PO; -OXYC-133 PO
--- NOTE | 2021-03-07 09:22 | NUR ---
DR. ABREU AT FOR STEVEAL.
--- NOTE | 2021-03-07 09:24 | NUR ---
ROSELIA [id number] FROM [facility] C/O NAUSEA, GIVEN ZOFRAN. DIDN'T FINISH DIALYSIS PER EMS. PT AAOX4, VSS. RR EVEN & UNLABOERD. DENIES CP, SOB, DIZZINESS, N/V AT THIS TIME. WILL CONT TO MONITOR.
[2021-03-07] MEDS ORDERED: ONDANSETRON 4 MG TAB.RAPDIS ONE (09:34)
[2021-03-07] MEDS: ONDANSETRON 4 MG TAB.RAPDIS SL ONE (09:35)
[2021-03-07 09:41] LABS: BASOPHILS # (AUTO) 0.1 /CMM (0.0-0.2); BASOPHILS % (AUTO) 0.8 % (0.0-2.0); EOSINOPHILS % (AUTO) 1.7 % (0.0-6.0); HEMATOCRIT 30 % (39-51); HEMOGLOBIN 9.6 g/dL (13.5-17.5); LYMPHOCYTES # (AUTO) 1.8 /CMM (0.8-4.8); LYMPHOCYTES % (AUTO) 14.7 % (20.0-44.0); MEAN CORPUSCULAR HGB CONC 32 g/dl (31.0-36.0); MEAN CORPUSCULAR VOLUME 93 fL (80-96); MONOCYTES # (AUTO) 0.8 /CMM (0.1-1.30); MONOCYTES % (AUTO) 6.7 % (2.0-12.0); NEUTROPHILS # (AUTO) 9.2 /CMM (1.8-8.9); NEUTROPHILS % (AUTO) 76.1 % (43.0-81.0); PLATELET COUNT (AUTO) 338 /CMM (150-450); RED BLOOD CELL COUNT(AUTO) 3.28 MIL/uL (4.5-6.0); WHITE BLOOD COUNT (AUTO) 12.1 K/uL (4.3-11.0)
[2021-03-07 09:54] LABS: ALBUMIN 2.1 g/dL (3.4-5.0); BILIRUBIN,DIRECT 0.1 mg/dL (0.0-0.2); BILIRUBIN,TOTAL 0.2 mg/dL (0.2-1.0); CALCIUM, SERUM 7.9 mg/dL (8.5-10.1); POTASSIUM 5.2 mmol/L (3.5-5.1); TOTAL PROTEIN, SERUM 7.2 g/dL (6.4-8.2)
[2021-03-07 10:00] LABS: CREATININE 7.9 mg/dL (0.6-1.3)
[2021-03-07 10:53] VITALS: BP 140/60
== END 2021-03-07 10:53 | disposition home or self-care (01) ==
LOC: ER 09:13
DX: R60.0 Localized edema (principal); R11.0 Nausea; I12.0 Hypertensive chronic kidney disease with stage 5 chronic kidney disease or end stage renal disease; N18.6 End stage renal disease; D63.1 Anemia in chronic kidney disease; Z99.2 Dependence on renal dialysis; E78.5 Hyperlipidemia, unspecified; I25.2 Old myocardial infarction; J44.9 Chronic obstructive pulmonary disease, unspecified; F17.200 Nicotine dependence, unspecified, uncomplicated; Z86.73 Personal history of transient ischemic attack (TIA), and cerebral infarction without residual deficits; Z98.890 Other specified postprocedural states; Z88.6 Allergy status to analgesic agent; Z59.0 Homelessness; Z79.82 Long term (current) use of aspirin; Z79.899 Other long term (current) drug therapy
CPT/HCPCS: 36415; 80048; 80076; 83690; 85025; 99283; Q0162

== ENCOUNTER 2021-03-14 21:46 | Inpatient (IN) | payer MEDICAID ==
[~2021-03-14] VITALS: Ht 170.2 cm; Wt 99.8 kg
[2021-03-14 22:38] LABS: BASOPHILS # (AUTO) 0.1 /CMM (0.0-0.2); BASOPHILS % (AUTO) 0.6 % (0.0-2.0); EOSINOPHILS % (AUTO) 1.3 % (0.0-6.0); HEMATOCRIT 30 % (39-51); HEMOGLOBIN 9.6 g/dL (13.5-17.5); LYMPHOCYTES # (AUTO) 1.2 /CMM (0.8-4.8); MEAN CORPUSCULAR HGB CONC 32 g/dl (31.0-36.0); MEAN CORPUSCULAR VOLUME 93 fL (80-96); MONOCYTES # (AUTO) 0.5 /CMM (0.1-1.30); MONOCYTES % (AUTO) 5.3 % (2.0-12.0); NEUTROPHILS # (AUTO) 8.3 /CMM (1.8-8.9); NEUTROPHILS % (AUTO) 80.8 % (43.0-81.0); PLATELET COUNT (AUTO) 294 /CMM (150-450); RED BLOOD CELL COUNT(AUTO) 3.22 MIL/uL (4.5-6.0); WHITE BLOOD COUNT (AUTO) 10.3 K/uL (4.3-11.0)
--- NOTE | 2021-03-14 22:43 | NUR ---
[facility] TO ER BED 12. AAOX4. NOT IN RESP DISTRESS BUT FEELS SOB. BROUGHT IN FOR GENERALIZED WEAKNESS, SOB, LOW BACK PAIN AND BEEN MISSING HIS DIALYSIS. PT'S SESSION ARE T,,S. LAST ONE WAS TODAY BUT DID NOT COMPLETE BECAUSE HE WAS NOT FEELING WELL. HE REPORTS MISSING HIS LAST ONE ON THURSDAY. PT IN O2 VIA NC @ 2LPM. ON MONITOR. WAS AT THE BEDSIDE FOR EVAL. ORDERS RECEIVED, NOTED AND CARRIED OUT. IV LINE ESTABLISHED ON THE RFA 20G, BLOOD DRAWN AND GIVEN TO PHLEB.
[2021-03-14 22:57] LABS: CARBON DIOXIDE 29 mmol/L (21-32); CHLORIDE 97 mmol/L (98-107); CREATININE 6.6 mg/dL (0.6-1.3); GLUCOSE 97 mg/dL (74-106); POTASSIUM 5.1 mmol/L (3.5-5.1); SODIUM SERUM 134 mmol/L (136-145); UREA NITROGEN, BLOOD 28 mg/dL (7-18)
[2021-03-14 23:09] LABS: ALANINE AMINOTRANSFERASE 10 U/L (12-78); ALKALINE PHOSPHATASE 65 U/L (46-116); ASPARTATE AMINOTRANSFERASE 17 U/L (15-37); BILIRUBIN,DIRECT 0.1 mg/dL (0.0-0.2); BILIRUBIN,TOTAL 0.3 mg/dL (0.2-1.0); NT-PRO BNP 28023 pg/mL (0-125); TOTAL PROTEIN, SERUM 6.8 g/dL (6.4-8.2)
[2021-03-14 23:18] LABS: CALCIUM, SERUM 7.9 mg/dL (8.5-10.1)
[2021-03-14] MEDS ORDERED: HYDROCODONE/APAP 5/325MG TABLET ONE (23:28)
[2021-03-14] MEDS ORDERED: FUROSEMIDE 40 MG/4 ML VIAL ONE (23:28)
[2021-03-14] MEDS ORDERED: FUROSEMIDE 40 MG/4 ML VIAL IV ONE (23:30)
[2021-03-14] MEDS ORDERED: HYDROCODONE/APAP 5/325MG TABLET PO ONE (23:30)
--- NOTE | 2021-03-15 00:57 | NUR ---
TELE [id number]
--- NOTE | 2021-03-15 01:47 | NUR ---
REPORT GIVEN TO FARHAN LOPEZ FOR PIPPA
--- NOTE | 2021-03-15 02:20 | NUR ---
HEEL REDUCER NOTES PATIENT ARRIVED TO THE UNIT VIA RNEY AT 0220 ACCOMPANIED BY NURSE TEODORA. PATIENT WAS ABLE TO STAND UP AND WALKED FROM THE GURNEY TO HIS BED. PATIENT WAS ORIENTED TO THE STAFF AND THE ROOM. PATIENT IS ALERT AND ORIENTED X4. PATIENT'S ON ROOM AIR WITH NO RESPIRATORY DISTRESS NOTED. PATIENT HAS AN IV ACCESS ON HIS RIGHT FOREARM GAUGE #20. SAFETY MEASURES ARE KEPT IN PLACE: BED LOCKED, SIDE RAILS UP X2, AND CALL LIGHT WITHIN REACH OF THE PATIENT. WILL CONTINUE TO MONITOR THE PATIENT.
[2021-03-15 03:00] VITALS: BP 156/98
[2021-03-15] MEDS ORDERED: ONDANSETRON HCL/PF 4 MG/2 ML VIAL IV PRN (03:00)
[2021-03-15] MEDS: HYDROMORPHONE 1 MG/1 ML DISP.SYRIN IV PRN ×5 (03:23→20:49)
--- NOTE | 2021-03-15 03:23 | NUR ---
RN NOTES PATIENT C/O OF 10/10 PAIN AND WAS THEN GIVEN 1 MG OF DILAUDID IV. WILL CONTINUE TO MONITOR THE PATIENT.
[2021-03-15] MEDS ORDERED: CLON0.1T PO (06:00)
[2021-03-15] MEDS ORDERED: FURO40TA5 PO (06:02)
[2021-03-15] MEDS ORDERED: DOCU100C36 PO (06:04)
[2021-03-15] MEDS ORDERED: CARV25TA2 PO (06:06)
[2021-03-15] MEDS ORDERED: DILT60TA35 PO (06:09)
[2021-03-15] MEDS ORDERED: ZOLPIDEM TARTRATE 5 MG TABLET PO PRN (06:30)
[2021-03-15] MEDS ORDERED: ACETAMINOPHEN 325 MG TABLET PO PRN (06:30)
--- NOTE | 2021-03-15 07:27 | NUR ---
RN CLOSING NOTES PATIENT WAS LAST SEEN AWAKE RESTING IN BED. PATIENT IS ALERT AND ORIENTED X4. PATIENT'S ON ROOM AIR WITH NO RESPIRATORY DISTRESS NOTED. PATIENT HAS A TELE MONITOR WITH NO CARDIAC DISTRESS NOTED. PATIENT HAS AN IV ACCESS ON HIS RIGHT FOREARM GAUGE #20, WHICH IS INTACT AND PATENT. . SAFETY MEASURES ARE KEPT IN PLACE: BED LOCKED, SIDE RAILS UP X2, AND CALL LIGHT WITHIN EASY REACH OF THE PATIENT. ENDORSED CARE TO THE DAY SHIFT NURSE.
[2021-03-15] MEDS: PANTOPRAZOLE 40 MG TABLET.DR PO SCH (07:43)
[2021-03-15 07:56] LABS: BASOPHILS % (AUTO) 0.5 % (0.0-2.0); EOSINOPHILS % (AUTO) 1.3 % (0.0-6.0); HEMATOCRIT 29 % (39-51); HEMOGLOBIN 9.3 g/dL (13.5-17.5); LYMPHOCYTES # (AUTO) 1.8 /CMM (0.8-4.8); LYMPHOCYTES % (AUTO) 17.3 % (20.0-44.0); MEAN CORPUSCULAR HGB CONC 32 g/dl (31.0-36.0); MEAN CORPUSCULAR VOLUME 93 fL (80-96); MONOCYTES # (AUTO) 0.7 /CMM (0.1-1.30); MONOCYTES % (AUTO) 6.4 % (2.0-12.0); NEUTROPHILS # (AUTO) 7.9 /CMM (1.8-8.9); NEUTROPHILS % (AUTO) 74.5 % (43.0-81.0); PLATELET COUNT (AUTO) 259 /CMM (150-450); WHITE BLOOD COUNT (AUTO) 10.6 K/uL (4.3-11.0)
--- NOTE | 2021-03-15 07:57 | NUR ---
WOUND CARE CONSULT: PT REFUSED FULL SKIN ASSESSMENT AND STATES HAS NO OPEN WOUNDS. DRY SCRATCHES NOTED TO FACE, PRESENT ON ADMISSION. PT WEARING JEANS WITH HIS GOWN AND REFUSED TO REMOVE JEANS. PT IS AMBULATORY AND CONTINENT AT THIS TIME WITH CURRENT JULIANA SCORE OF 19. WILL SEE PRN.
[2021-03-15 08:00] VITALS: BP 157/92
--- NOTE | 2021-03-15 08:00 | NUR ---
RN OPENING NOTE RECEIVED PATIENT IN BED, AO X 4, ABLE TO RESPONDS ALL STIMULI. C/O BACK PAIN 10/10 SCALE, GIVEN DILAUDID THIS MORNING. SKIN IS WARM TO TOUCH KEEP CLEAN/DRY, INTACT IV SITE. RESPIRATORY EVEN AND UNLABORED WITH OXYGEN AT 3LPM, NO DISTRESS OBSERVED. KEPT ELEVATED HOB FOR ENSURE AIRWAY AND ASPIRATION PRECAUTION, ALSO LOWEST BED POSITION FOE SAFETY. CALL LIGHT WITHIN REACH, WILL CONTINUE TO MONITOR.
[2021-03-15 08:04] LABS: ALANINE AMINOTRANSFERASE 7 U/L (12-78); ALBUMIN 1.9 g/dL (3.4-5.0); ALKALINE PHOSPHATASE 59 U/L (46-116); ASPARTATE AMINOTRANSFERASE 12 U/L (15-37); BILIRUBIN,TOTAL 0.3 mg/dL (0.2-1.0); CALCIUM, SERUM 7.3 mg/dL (8.5-10.1); CARBON DIOXIDE 29 mmol/L (21-32); CHLORIDE 98 mmol/L (98-107); CREATININE 7.2 mg/dL (0.6-1.3); GLUCOSE 86 mg/dL (74-106); PHOSPHORUS 6.2 mg/dL (2.5-4.9); POTASSIUM 4.9 mmol/L (3.5-5.1); SODIUM SERUM 134 mmol/L (136-145); TOTAL PROTEIN, SERUM 6.2 g/dL (6.4-8.2); UREA NITROGEN, BLOOD 31 mg/dL (7-18)
[2021-03-15 08:14] LABS: CHOLESTEROL 152 mg/dL (<200); HDL CHOLESTEROL 46 mg/dL (40-60); LDL 72 mg/dL (0-99); THYROID STIMULATING HORMONE 3.914 uIU/mL (0.358-3.74); TRIGLYCERIDES 185 mg/dL (30-150)
[2021-03-15] MEDS ORDERED: CLONIDINE HCL 0.1 MG TABLET PO SCH (09:00)
[2021-03-15] MEDS: ASPIRIN 81 MG TAB.CHEW PO SCH (09:04)
[2021-03-15] MEDS: CEPHALEXIN MONOHYDRATE 500 MG CAPSULE PO SCH ×3 (09:04→16:44)
[2021-03-15] MEDS: DOCUSATE SODIUM 100 MG CAPSULE PO SCH ×2 (09:04→16:44)
[2021-03-15] MEDS: CARVEDILOL 12.5 MG TABLET PO SCH ×2 (09:05→20:43)
[2021-03-15] MEDS: CLONIDINE HCL 0.1 MG TABLET PO SCH ×3 (09:05→16:44)
[2021-03-15] MEDS: DILTIAZEM HCL CD 120 MG PO SCH (09:05)
[2021-03-15] MEDS: BUMETANIDE (1 MG) 1 MG TABLET PO SCH ×2 (09:06→16:44)
--- NOTE | 2021-03-15 13:01 | NUR ---
PATIENT RECEIVED HD ORDER, OBTAINED SIGN OF CONSENT FOR HD.
--- NOTE | 2021-03-15 13:02 | NUR ---
PATIENT GOING HD AND BP 108/69, WILL HOLD BP MEDICATION.
--- NOTE | 2021-03-15 14:10 | NUR ---
Director Of Institutional Giving consult: Director Of Institutional Giving consult requested for homelessness and substance use. Patient is a 56-year-old, male. SW met with patient at his bedside on the med-surg unit. Patient was alert and oriented x4. Patient presented calm and well-groomed. Per chart, patient was brought in by ambulance on 03/15/21 for generalized weakness, shortness of breath and back pain. Patient had missed his dialysis visits. Patient stated that he currently lives at [address] [place] [address], [address], [place] [address]; [phone]. Patient stated that he is not homeless and lives in an apartment. SW asked patient if he has access to social support and patient provided SW with contact information for his brother, Slava Mackay, , and his [id number], Dinesh, . Patient stated that he currently receives SSI as a source of income. SW asked patient if he can ambulate and patient stated that he currently uses a wheelchair. Patient stated that he has initiated applying for Home Health and requested for support at home. SW will notify case management of patients request. SW assessed patients history of substance use and patient stated that he has a history of alcohol use from 8 years ago. Patient denied history of drug use. Patient denied history of mental illness. Patient denied history of suicidal or homicidal ideation. SW discussed discharge plans with the patient. Patient stated that he will return to his prior living arrangement and requested Home Health. SW will notify case management of patients request for Home Health. PLAN: Patient plans to return to his prior living arrangement and requested Home Health. SW will follow up and notify case management of patients request. SW will remain available as needed.
--- NOTE | 2021-03-15 14:30 | NUR ---
Operating Room Rn note: MARY ALICE notified DORA Carlisle of patient's request for Home Health. DORA Carlisle to follow up. No further SS intervention at this time, however, SW will remain available as needed.
[2021-03-15 16:00] VITALS: BP 102/54
--- NOTE | 2021-03-15 16:52 | NUR ---
PATIENT IS ON HD, WILL HOLD BP MEDICATION.
--- NOTE | 2021-03-15 18:38 | NUR ---
RN CLOSING NOTE PATIENT RESTING IN BED, FINISHED HD AND 2500ML OUT PUT. DOES NO APPEARS DISTRESS OR DISCOMFORT. SKIN IS WARM TOUCH, KEEP CLEAN/DRY, STILL INTACT IV SITE ON LEFT HAND. RESPIRATORY EVEN AND UNLABORED ON ROOM AIR, O2SAT 99%. KEPT ELEVATED HOB FOR ENSURE AIRWAY AND ASPIRATION PRECAUTION, ALSO LOWEST BED POSITION FOR SAFETY. PATIENT PACING ON HALLWAY DURING THE SHIFT, ENCOURAGED PATIENT TO STAY IN THE ROOM OR ASK SOMEONE ESCORT WHEN PATIENT WANTS TO WALK HALLWAY. CALL LIGHT WITHIN REACH, WILL ENDORSE WARP DRAWER.
[2021-03-15 20:00] VITALS: BP 131/75
--- NOTE | 2021-03-15 20:00 | NUR ---
MS RN NOTES Patient is awake, A&Ox4. No c/o pain or discomfort at this time. No signs of distress. Able to make needs known. Bed locked in lowest position, patient with non-skid footwear on. No s/s of infection or bleeding to R upper chest dialysis access site, +bruit and thrill. Will continue to monitor.
--- NOTE | 2021-03-15 20:57 | NUR ---
MS RN NOTES Patient c/o 8/10 pain to midback, describes as aching and sharp. PRN pain medication dilaudid given as per order.
[2021-03-16] MEDS: HYDROMORPHONE 1 MG/1 ML DISP.SYRIN IV PRN ×6 (00:51→17:07)
--- NOTE | 2021-03-16 00:51 | NUR ---
MS RN NOTES Patient reports 10/10 pain to midback. PRN dilaudid given as per MD order.
--- NOTE | 2021-03-16 04:50 | NUR ---
Patient c/o 10/10 lower back pain that is sharp, hot packs given, massage, and TV distraction. Patient reports being unable to move. PRN dilaudid given as per MD order. Patient requests Xray as the pain "does not feel like muscle."
--- NOTE | 2021-03-16 04:56 | NUR ---
MS RN NOTES Received order from MD for Xray lumbar spine routine and increase frequency of PRN dilaudid from PRN Q4H to PRN Q3H.
--- NOTE | 2021-03-16 06:05 | NUR ---
MS RN CLOSING NOTES Patient A&Ox4. VSS. Compliant with plan of care, calm. Denies SOB, or CP. Up and walking around in room with no distress. Only complaints were of pain and were managed with PRN pain medication in combination with nursing interventions.
--- NOTE | 2021-03-16 07:35 | NUR ---
MS RN OPENING NOTES RECEIVED PATIENT IN BED, AWAKE, A&O X 4, ON RA TOLERATING WELL, NO ACUTE DISTRESS NOTED. WITH IV ACCESS ON LEFT HAND G#22, PATENT AND FLUSHES WELL, NO REDNESS NOTED. PATIENT HAS COMPLAINTS OF LOW BACK PAIN, PAIN MEDICATION DUE AT 8AM. SAFETY PRECAUTION OBSERVED: BED ON LOWEST LOCKED POSITION. KEPT CALL LIGHT WITHIN EASY REACH. WILL CONTINUE TO MONITOR CURRENT STATUS.
[2021-03-16] MEDS: PANTOPRAZOLE 40 MG TABLET.DR PO SCH (07:52)
[2021-03-16 08:00] VITALS: BP 148/93
--- NOTE | 2021-03-16 08:00 | NUR ---
RN NOTES PATIENT C/O OF LOWER BACK PAIN WITH PAIN SCALE OF 8/10. DUE PRN PAIN MEDICATION GIVEN, WILL CONTINUE TO MONITOR PAIN STATUS.
[2021-03-16 08:39] LABS: BASOPHILS # (AUTO) 0.1 /CMM (0.0-0.2); EOSINOPHILS % (AUTO) 1.5 % (0.0-6.0); HEMATOCRIT 29 % (39-51); HEMOGLOBIN 9.4 g/dL (13.5-17.5); LYMPHOCYTES # (AUTO) 1.9 /CMM (0.8-4.8); LYMPHOCYTES % (AUTO) 22.1 % (20.0-44.0); MEAN CORPUSCULAR HGB CONC 33 g/dl (31.0-36.0); MEAN CORPUSCULAR VOLUME 94 fL (80-96); MONOCYTES # (AUTO) 0.6 /CMM (0.1-1.30); MONOCYTES % (AUTO) 7.4 % (2.0-12.0); NEUTROPHILS # (AUTO) 5.8 /CMM (1.8-8.9); PLATELET COUNT (AUTO) 243 /CMM (150-450); WHITE BLOOD COUNT (AUTO) 8.5 K/uL (4.3-11.0)
[2021-03-16 08:50] LABS: MAGNESIUM 2.2 mg/dL (1.8-2.4)
[2021-03-16] MEDS: CEPHALEXIN MONOHYDRATE 500 MG CAPSULE PO SCH ×3 (09:02→16:45)
[2021-03-16] MEDS: BUMETANIDE (1 MG) 1 MG TABLET PO SCH ×2 (09:02→16:45)
[2021-03-16] MEDS: DOCUSATE SODIUM 100 MG CAPSULE PO SCH ×2 (09:02→16:45)
[2021-03-16] MEDS: ASPIRIN 81 MG TAB.CHEW PO SCH (09:02)
[2021-03-16] MEDS: DILTIAZEM HCL CD 120 MG PO SCH (09:03)
[2021-03-16] MEDS: CLONIDINE HCL 0.1 MG TABLET PO SCH ×3 (09:04→16:46)
[2021-03-16] MEDS: CARVEDILOL 12.5 MG TABLET PO SCH (09:04)
[2021-03-16] MEDS ORDERED: PANT40TA2 PO (09:09)
[2021-03-16] MEDS ORDERED: SEVE800T8 PO (09:09)
[2021-03-16] MEDS ORDERED: CLON0.1T PO (09:09)
[2021-03-16] MEDS ORDERED: CARV25TA PO (09:09)
[2021-03-16] MEDS ORDERED: BUME1TAB9 PO (09:09)
[2021-03-16] MEDS ORDERED: HYDR-3980 PO (09:09)
[2021-03-16] MEDS ORDERED: CEPH250S PO (09:09)
[2021-03-16] MEDS ORDERED: DILT180C66 PO (09:09)
--- NOTE | 2021-03-16 11:07 | NUR ---
RN NOTES PATIENT C/O OF LOWER BACK PAIN WITH PAIN SCALE OF 8/10. DUE PRN PAIN MEDICATION GIVEN, WILL CONTINUE TO MONITOR PAIN STATUS.
[2021-03-16] MEDS: SEVELAMER CARBONATE 800 MG POWD.PACK GT SCH ×2 (11:12→12:38)
[2021-03-16 11:47] LABS: CALCIUM, SERUM 7.7 mg/dL (8.5-10.1); CREATININE 6.6 mg/dL (0.6-1.3); POTASSIUM 5.3 mmol/L (3.5-5.1)
[2021-03-16] MEDS ORDERED: ALPRAZOLAM 1 MG TABLET PO ONE (13:00)
--- NOTE | 2021-03-16 13:12 | NUR ---
RN NOTES PT STARTED BY HD RN [facility] HD CATH. PRE HD VS CHECKED: BP 130/76, P 74, R 18 AND T 98F. XANAX 1 MG PO X1 GIVEN PER CYNTHIA QUINN. WILL CONTINUE TO MONITOR.
--- NOTE | 2021-03-16 13:42 | NUR ---
RN NOTES CALLED [facility] AT [phone] TO VERIFY IF THEY WERE ABLE TO RECEIVE E-PRESCRIPTION, SPOKE TO SREEKANTH AND SAID THEY HAVE IT.
--- NOTE | 2021-03-16 14:01 | NUR ---
RN NOTES PT C/O LOWER BACK PAIN, 10/10 SCALE. PRN DILAUDID 1MG/1ML IVP ADMINISTERED AT 1359. WILL CONTINUE TO MONITOR AND REASSESS PT.
[2021-03-16 16:00] VITALS: BP 105/58
--- NOTE | 2021-03-16 16:05 | NUR ---
RN NOTES HEMODIALYSIS FINISHED WITH 2,00ML OUTPUT, PT TOLERATED PROCEDURE. S/P HD V/S: BP 105/58, P 80. R 18, T 98F. WILL CONTINUE TO MONITOR. .
[2021-03-16 16:46] VITALS: BP 105/58
--- NOTE | 2021-03-16 17:28 | NUR ---
RN DISCHARGED NOTES PT DISCHARGED HOME IN STABLE CONDITION. A/O X4. ABLE TO MAKE NEEDS KNOWN. AMBULATORY. V/S TAKEN, STABLE AND RECORDED. HD CATH ON RCW IN PLACE WITH NO ACTIVE BLEEDING NOTED. PIV ACCESS ON LEFT HAND REMOVED, NO ACTIVE BLEEDING NOTED AND APPLIED DRY DRESSING AT SITE. NAME ARMBAND REMOVED. EDUCATED ON SMOKING CESSATION, HEALTH TEACHINGS/DISCHARGED INSTRUCTIONS GIVEN TO PT AND VERBALIZED UNDERSTANDING. PT LEFT UNIT AT 1715 VIA WHEELCHAIR ACCOMPANIED ME TO OUTSIDE OF HOSPITAL. BUS TAP CARD HANDED TO PT. CHARGE NURSE AND MD AWARE OF PT'S DISCHARGE.
== END 2021-03-16 17:20 | disposition home or self-care (01) | DRG 194 ==
LOC: ER 21:46 → TELE 03-15 02:08 → MED 03-15 08:05
PROVIDERS: ADMIT Nurse Practitioner Acute Care; ATTEND Nurse Practitioner Acute Care
PROC: 5A1D70Z Performance of Urinary Filtration, Intermittent, Less than 6 Hours Per Day (ICD-10-PCS; principal; 2021-03-15)
DX: I13.2 Hypertensive heart and chronic kidney disease with heart failure and with stage 5 chronic kidney disease, or end stage renal disease (principal); E11.22 Type 2 diabetes mellitus with diabetic chronic kidney disease; N18.6 End stage renal disease; Z99.2 Dependence on renal dialysis; E78.5 Hyperlipidemia, unspecified; J44.9 Chronic obstructive pulmonary disease, unspecified; D63.1 Anemia in chronic kidney disease; I50.9 Heart failure, unspecified; B19.20 Unspecified viral hepatitis C without hepatic coma; E66.9 Obesity, unspecified; F17.200 Nicotine dependence, unspecified, uncomplicated; Z68.34 Body mass index [BMI] 34.0-34.9, adult; Z79.82 Long term (current) use of aspirin; Z79.899 Other long term (current) drug therapy; Z86.73 Personal history of transient ischemic attack (TIA), and cerebral infarction without residual deficits; Z91.19 Patient's noncompliance with other medical treatment and regimen; Z59.0 Homelessness; M89.8X9 Other specified disorders of bone, unspecified site; F19.10 Other psychoactive substance abuse, uncomplicated; Z98.890 Other specified postprocedural states; Z88.8 Allergy status to other drugs, medicaments and biological substances; E87.5 Hyperkalemia; Z76.5 Malingerer [conscious simulation]; F29 Unspecified psychosis not due to a substance or known physiological condition; F32.9 Major depressive disorder, single episode, unspecified; I87.2 Venous insufficiency (chronic) (peripheral); Z20.822 Contact with and (suspected) exposure to COVID-19
CPT/HCPCS: 36415; 71045-TC; 72100-TC; 80048-TC; 80053-TC; 80061-TC; 80076-TC; 83540-TC; 83735-TC; 83880; 83970; 84100-TC; 84443-TC; 84484-TC; 85025-TC; 85730-TC; 86704; 86705; 86706; 86803; 87081-TC; 87340; 90935-TC; 93307-TC; C9803; G0378; J1170; J1940